=== PATIENT | male | born 2000 | race Caucasian/White ===

== ENCOUNTER 2022-04-21 15:18 | Observation (INO) ==
[2022-04-21] MEDS ORDERED: SODIUM CHLORIDE 0.9% 1000ML 1,000 ML IV SCH (16:00)
--- NOTE | 2022-04-21 16:04 | Emergency Department Note ---
Impression & Plan Intentional overdose, Suicidal ideation ED Provider Note ED Provider Note NAME: BUTCH HYLTON AGE:21 SEX: Male : 2000 ARRIVES VIA: ems INFORMANT: Patient ED PROVIDER(s): Gila Silva DO CHIEF COMPLAINT: Intentional overdose HPI: This is a 21-year-old male brought in by EMS following intentional overdose. Patient states that approximately 230 he took 1000 mg each of Pristiq and trazodone. He states he is typically prescribed 100 mg daily of these and has been on these for a while. He states he does see a counselor due to history of anxiety and depression but is currently between psychiatrist. He states he has had increased depression recently and did have thoughts of suicide when he attempted this afternoon. Patient states he did previously attempt via cutting. No prior attempted overdose. He denies any additional coingestion. At this time patient states he feels slightly lightheaded and tired but has no other complaints. Patient states he contacted crisis who then called EMS. Police did fill out a 302 box be on the patient. PAST MEDICAL HISTORY:See Below PAST SURGICAL HISTORY:See Below FAMILY HISTORY:See Below SOCIAL HISTORY:See Below HOME MEDICATIONS:See Below ALLERGIES:See Below VITALS:See Below PHYSICAL EXAMINATION: GENERAL: alert, well appearing, well nourished, no distress, non-toxic EYE EXAM: normal conjunctiva, PERRL and EOM's grossly intact OROPHARYNX: no exudate, no erythema, lips, buccal mucosa, and tongue normal and mucous membranes are moist NECK: supple, no nuchal rigidity, no adenopathy, non-tender LUNGS: Clear to auscultation. Normal chest wall mechanics, no w/r/r HEART: no murmurs, S1 normal and S2 normal ABDOMEN: abdomen soft, non-tender, normo-active bowel sounds, no masses, no rebound or guarding. BACK: Back is symmetrical on inspection and there is no deformity, no midline tenderness, no CVA tenderness. SKIN: no rashes, petechiae, orbruising UPPER EXTREMITIES: upper extremities are grossly normal. FROM, nml pulses b/l. LOWER EXTREMITIES: No pitting edema. FROM, nml pulses b/l. NEURO EXAM: Normal sensorium, cranial nerves II-XII grossly intact, normal speech, no facial droop,nogross weakness of arms, no gross weakness of legs. Gross sensation intact. No ataxia. Vital Signs: reviewed and remarkable Differential Diagnosis: Overdose, toxicologic, infection, hypoglycemia, electrolyte abnormalities, cardiac sources, intracerebral event, neurologic, trauma, as well as other pathologies. MEDICAL DECISION MAKING: This is a 21 yo male who presents following an intentional overdose. Vs stable and patient awake/alert. Labs drawn and sent, IV establish, ekg performed and interpreted by me and IVF started on the patient. Patient monitored on telemetry and remained stable. Labs reassuring. I did discuss the case with poison control who recommended minimum of 12 hour observation given long half life of ingested meds and increased risk of seizures. Given need for prolonged observation, case discussed with hospitalist team. No indication of charcoal at this time. No other evidence of evolving toxidrome. Patient ambulatory and tolerating po in the room after resting for a while initially. Consultation(s): 1611: Discussed with Poison Control, Mayda, recommends minimum 12 hour obs given prolonged half life of Pristiq and increased risk of seizures. 1735: DIscussed with PAM Fierro with [facility] hospitalist team. ER Treatment Provided: See below Diagnostics Interpreted By Me: -ECG: NSR at 71, nml axis, nml QRS and QTc, no acute ST/T wave changes -Cardiac Monitoring: An order was placed for continuous cardiac monitoring. The monitor shows a rate of 72 with normal sinus rhythm. -Laboratory studies: As stated above and show below. -Imaging studies: [] Triage Nursing Note Reviewed Prior/Outside Records Reviewed Procedures: [] Critical Care: [] Past Med/Surg History Medical History (Updated 04/21/22 @ 21:51 by Irma Box DO) Mood disorder Surgical History No pertinent past surgical history Social History Smoking Status: Never smoker Hx Alcohol Use: No Hx Substance Use: No Preferred Language: Romanian Communication Ability: Effective Departure Clerk Required: No Current Living Situation: Other Current Living Situation Comment: apartment with three roommates Other Information That Helps Us Care for You: No Feels Safe at Home: Yes Safety Concerns: Feels Safe At This Time Allergies Allergies Allergy/AdvReac Type Severity Reaction Status Date / Time No Known Allergies Allergy Verified 04/21/22 17:37 Home Meds Home Medications Medication Instructions Recorded Confirmed desvenlafaxine succinate 100 mg 100 mg PO DAILY 04/21/22 04/21/22 tablet,extended release 24 hr (Pristiq) trazodone 100 mg tablet 100 mg PO HS 04/21/22 04/21/22 Results & Data (ED) Vital Signs Vital Signs - 24 hr 04/21/22 15:47 04/21/22 15:47 04/21/22 15:47 Temperature 37 C 37 C Temperature Source Oral Oral Pulse Rate 84 84 Pulse Rate [Apical] 84 Pulse Rate from SpO2 Sensor Pulse Rhythm Pulse Rhythm [Apical] Regular Pulse Strength [Apical] Normal Respiratory Rate 16 16 16 Respiratory Depth Normal Blood Pressure 135/69 135/69 Blood Pressure [Right Arm] 135/69 Blood Pressure Mean 91 91 Blood Pressure Mean [Right Arm] 91 Pulse Oximetry 100 100 100 Oxygen Delivery Method Room Air Room Air Room Air Sepsis Recent Fever Within 48 Hours No Sepsis New/Unexplained Change in Mental Status No Sepsis Action Taken by Nursing No Action Required 04/21/22 16:00 04/21/22 16:06 04/21/22 16:50 Temperature Temperature Source Pulse Rate 73 72 Pulse Rate [Apical] Pulse Rate from SpO2 Sensor Pulse Rhythm Regular Pulse Rhythm [Apical] Pulse Strength [Apical] Respiratory Rate 20 Respiratory Depth Blood Pressure 130/62 Blood Pressure [Right Arm] Blood Pressure Mean 84 Blood Pressure Mean [Right Arm] Pulse Oximetry 100 Oxygen Delivery Method Room Air Sepsis Recent Fever Within 48 Hours Sepsis New/Unexplained Change in Mental Status Sepsis Action Taken by Nursing 04/21/22 16:50 04/21/22 17:00 04/21/22 17:00 Temperature Temperature Source Pulse Rate 86 86 Pulse Rate [Apical] Pulse Rate from SpO2 Sensor 86 87 Pulse Rhythm Pulse Rhythm [Apical] Pulse Strength [Apical] Respiratory Rate 13 16 Respiratory Depth Blood Pressure 135/65 Blood Pressure [Right Arm] Blood Pressure Mean 88 Blood Pressure Mean [Right Arm] Pulse Oximetry 100 98 Oxygen Delivery Method Sepsis Recent Fever Within 48 Hours Sepsis New/Unexplained Change in Mental Status Sepsis Action Taken by Nursing 04/21/22 17:20 04/21/22 17:30 04/21/22 17:30 Temperature Temperature Source Pulse Rate 105 H 67 Pulse Rate [Apical] Pulse Rate from SpO2 Sensor 102 H 65 Pulse Rhythm Pulse Rhythm [Apical] Pulse Strength [Apical] Respiratory Rate 15 14 Respiratory Depth Blood Pressure 122/67 Blood Pressure [Right Arm] Blood Pressure Mean 85 Blood Pressure Mean [Right Arm] Pulse Oximetry 98 97 Oxygen Delivery Method Sepsis Recent Fever Within 48 Hours Sepsis New/Unexplained Change in Mental Status Sepsis Action Taken by Nursing Laboratory Data 04/21/22 15:50 04/21/22 15:50 Lab Results 04/21/22 04/21/22 04/21/22 Range/Units 15:50 15:50 15:50 WBC 7.85 (4.8-10.8) K/ul RBC 4.90 (4.70-6.10) M/uL Hgb 14.5 (14.0-18.0) g/dl Hct 43.1 (42.0-52.0) % MCV 88.0 (80.0-100.0) fL MCH 29.6 (25.0-34.0) pg MCHC 33.6 (32.0-36.0) g/dL RDW Std Deviation 38.8 (36.4-46.3) fL RDW Coeff of [place] 12.0 (11.5-14.5) % Plt Count 273 (130-400) K/uL MPV 9.5 (9.4-12.4) fL Immature Gran % (Auto) 0.3 % Neut % (Auto) 78.6 % Lymph % (Auto) 11.6 % [place] % (Auto) 8.3 % Eos % (Auto) 0.8 % Baso % (Auto) 0.4 % Neut # (Auto) 6.18 (1.40-6.50) K/uL Lymph # (Auto) 0.91 L (1.2-3.4) K/uL [place] # (Auto) 0.65 H (0.11-0.59) K/uL Eos # (Auto) 0.06 (0-0.50) K/uL Baso # (Auto) 0.03 (0-0.2) K/uL Immature Gran # (Auto) 0.02 (0.01-0.20) K/uL PT 11.2 (9.0-12.0) Seconds INR 1.1 (0.9-1.1) Sodium 139 (136-145) mmol/L Potassium 4.0 (3.5-5.1) mmol/L Chloride 104 (98-107) mmol/L Carbon Dioxide 29 (21-32) mmol/L Anion Gap 6 (3-11) BUN 19 (6-23) mg/dl Creatinine 1.05 (0.6-1.4) mg/dl Est Cr Clr Drug Dosing Not Reportable Est GFR ( Amer) 117.9 ml/min Est GFR (Non-Af Amer) 101.7 ml/min BUN/Creatinine Ratio 18.1 (10-20) Glucose 113 H (70-99(Fasting)) mg/dl Calcium 9.5 (8.5-10.1) mg/dl Magnesium 1.9 (1.7-2.4) mg/dl Total Bilirubin 0.3 (0.2-1.0) mg/dl AST 26 (13-39) U/L ALT 41 (7-52) U/L Alkaline Phosphatase 73 (34-104) U/L Total Protein 6.8 (6.0-8.3) gm/dl Albumin 4.4 (3.4-5.0) gm/dl Globulin 2.4 L (2.5-4.0) gm/dl Albumin/Globulin Ratio 1.8 (0.9-2) Lipase 25 (11-82) U/L Urine Color Urine Appearance (Clear) Urine pH (4.5-7.5) Ur Specific [place] (1.000-1.030) Urine Protein (Negative) Urine Glucose (UA) (Negative) Urine Ketones (Negative) Urine Blood (Negative) Urine Nitrite (Negative) Urine Bilirubin (Negative) Urine Urobilinogen (Negative) Ur Leukocyte Esterase (Negative) Salicylates (3.0-30) mg/dl Urine Opiates Screen (Neg) Ur Methadone, Qual (Neg) Acetaminophen (10-30) ug/ml Urine Barbiturates (Neg) Ur Phencyclidine (PCP) (Neg) U Amphetamin/Meth Scrn (Neg) MDMA (Ecstasy) Screen (Neg) U Benzodiazepines Scrn (Neg) Ur Cocaine Metabolite (Neg) U Marijuana (THC) Screen (Neg) Ethyl Alcohol mg/dL (<10.0) mg/dl 04/21/22 04/21/22 04/21/22 Range/Units 15:50 15:50 17:30 WBC (4.8-10.8) K/ul RBC (4.70-6.10) M/uL Hgb (14.0-18.0) g/dl Hct (42.0-52.0) % MCV (80.0-100.0) fL MCH (25.0-34.0) pg MCHC (32.0-36.0) g/dL RDW Std Deviation (36.4-46.3) fL RDW Coeff of [place] (11.5-14.5) % Plt Count (130-400) K/uL MPV (9.4-12.4) fL Immature Gran % (Auto) % Neut % (Auto) % Lymph % (Auto) % [place] % (Auto) % Eos % (Auto) % Baso % (Auto) % Neut # (Auto) (1.40-6.50) K/uL Lymph # (Auto) (1.2-3.4) K/uL [place] # (Auto) (0.11-0.59) K/uL Eos # (Auto) (0-0.50) K/uL Baso # (Auto) (0-0.2) K/uL Immature Gran # (Auto) (0.01-0.20) K/uL PT (9.0-12.0) Seconds INR (0.9-1.1) Sodium (136-145) mmol/L Potassium (3.5-5.1) mmol/L Chloride (98-107) mmol/L Carbon Dioxide (21-32) mmol/L Anion Gap (3-11) BUN (6-23) mg/dl Creatinine (0.6-1.4) mg/dl Est Cr Clr Drug Dosing Est GFR ( Amer) ml/min Est GFR (Non-Af Amer) ml/min BUN/Creatinine Ratio (10-20) Glucose (70-99(Fasting)) mg/dl Calcium (8.5-10.1) mg/dl Magnesium (1.7-2.4) mg/dl Total Bilirubin (0.2-1.0) mg/dl AST (13-39) U/L ALT (7-52) U/L Alkaline Phosphatase (34-104) U/L Total Protein (6.0-8.3) gm/dl Albumin (3.4-5.0) gm/dl Globulin (2.5-4.0) gm/dl Albumin/Globulin Ratio (0.9-2) Lipase (11-82) U/L Urine Color Yellow Urine Appearance Clear (Clear) Urine pH 6.5 (4.5-7.5) Ur Specific [place] 1.005 (1.000-1.030) Urine Protein Negative (Negative) Urine Glucose (UA) Negative (Negative) Urine Ketones Negative (Negative) Urine Blood Negative (Negative) Urine Nitrite Negative (Negative) Urine Bilirubin Negative (Negative) Urine Urobilinogen Negative (Negative) Ur Leukocyte Esterase Negative (Negative) Salicylates < 3.0 L (3.0-30) mg/dl Urine Opiates Screen (Neg) Ur Methadone, Qual (Neg) Acetaminophen < 3 L (10-30) ug/ml Urine Barbiturates (Neg) Ur Phencyclidine (PCP) (Neg) U Amphetamin/Meth Scrn (Neg) MDMA (Ecstasy) Screen (Neg) U Benzodiazepines Scrn (Neg) Ur Cocaine Metabolite (Neg) U Marijuana (THC) Screen (Neg) Ethyl Alcohol mg/dL < 10.0 (<10.0) mg/dl 04/21/22 Range/Units 17:30 WBC (4.8-10.8) K/ul RBC (4.70-6.10) M/uL Hgb (14.0-18.0) g/dl Hct (42.0-52.0) % MCV (80.0-100.0) fL MCH (25.0-34.0) pg MCHC (32.0-36.0) g/dL RDW Std Deviation (36.4-46.3) fL RDW Coeff of [place] (11.5-14.5) % Plt Count (130-400) K/uL MPV (9.4-12.4) fL Immature Gran % (Auto) % Neut % (Auto) % Lymph % (Auto) % [place] % (Auto) % Eos % (Auto) % Baso % (Auto) % Neut # (Auto) (1.40-6.50) K/uL Lymph # (Auto) (1.2-3.4) K/uL [place] # (Auto) (0.11-0.59) K/uL Eos # (Auto) (0-0.50) K/uL Baso # (Auto) (0-0.2) K/uL Immature Gran # (Auto) (0.01-0.20) K/uL PT (9.0-12.0) Seconds INR (0.9-1.1) Sodium (136-145) mmol/L Potassium (3.5-5.1) mmol/L Chloride (98-107) mmol/L Carbon Dioxide (21-32) mmol/L Anion Gap (3-11) BUN (6-23) mg/dl Creatinine (0.6-1.4) mg/dl Est Cr Clr Drug Dosing Est GFR ( Amer) ml/min Est GFR (Non-Af Amer) ml/min BUN/Creatinine Ratio (10-20) Glucose (70-99(Fasting)) mg/dl Calcium (8.5-10.1) mg/dl Magnesium (1.7-2.4) mg/dl Total Bilirubin (0.2-1.0) mg/dl AST (13-39) U/L ALT (7-52) U/L Alkaline Phosphatase (34-104) U/L Total Protein (6.0-8.3) gm/dl Albumin (3.4-5.0) gm/dl Globulin (2.5-4.0) gm/dl Albumin/Globulin Ratio (0.9-2) Lipase (11-82) U/L Urine Color Urine Appearance (Clear) Urine pH (4.5-7.5) Ur Specific [place] (1.000-1.030) Urine Protein (Negative) Urine Glucose (UA) (Negative) Urine Ketones (Negative) Urine Blood (Negative) Urine Nitrite (Negative) Urine Bilirubin (Negative) Urine Urobilinogen (Negative) Ur Leukocyte Esterase (Negative) Salicylates (3.0-30) mg/dl Urine Opiates Screen Neg (Neg) Ur Methadone, Qual Neg (Neg) Acetaminophen (10-30) ug/ml Urine Barbiturates Neg (Neg) Ur Phencyclidine (PCP) Neg (Neg) U Amphetamin/Meth Scrn Neg (Neg) MDMA (Ecstasy) Screen Pos H (Neg) U Benzodiazepines Scrn Neg (Neg) Ur Cocaine Metabolite Neg (Neg) U Marijuana (THC) Screen Neg (Neg) Ethyl Alcohol mg/dL (<10.0) mg/dl Administered Medications Sodium Chloride (Nss 1000ml) 1,000 mls @ 100 mls/hr IV .Q10H MARCUS Stop: 05/21/22 17:29 Last Infusion: 04/21/22 20:37 Dose: 100 mls/hr Documented By: Admin: 04/21/22 18:00 Dose: 125 mls/hr Documented By: INDIA Discontinued Medications Sodium Chloride (Nss 1000ml) 1,000 mls @ 999 mls/hr IV .Q1H1M MARCUS Stop: 04/21/22 17:00 Last Infusion: 04/21/22 17:10 Dose: 0 mls/hr Documented By: Admin: 04/21/22 16:09 Dose: 999 mls/hr Documented By: NRB Discharge Plan Visit Data Chief Complaint: Overdose (Intentional) ED Provider: Gila Silva Discharge Problem: Intentional overdose, Suicidal ideation Patient Disposition: Admitted As Inpatient Discharge Instructions Interventions: ED Discharge Assessment Last Done: 04/21/22 19:55
[2022-04-21 16:29] LABS: Basophils # (auto) 0.03 K/uL (0-0.2); Basophils % (auto) 0.4 %; Eosinophils # (auto) 0.06 K/uL (0-0.50); Eosinophils % (auto) 0.8 %; Hematocrit (blood only) 43.1 % (42.0-52.0); Hemoglobin 14.5 g/dl (14.0-18.0); Immature Granulocytes # (auto) 0.02 K/uL (0.01-0.20); Immature Granulocytes % (auto) 0.3 %; Lymphocytes # (auto) 0.91 K/uL (1.2-3.4); Lymphocytes % (auto) 11.6 %; Mean Corpuscular Hemoglobin 29.6 pg (25.0-34.0); Mean Corpuscular Hgb Conc 33.6 g/dL (32.0-36.0); Mean Platelet Volume 9.5 fL (9.4-12.4); Monocytes # (auto) 0.65 K/uL (0.11-0.59); Monocytes % (auto) 8.3 %; Neutrophils # (auto) 6.18 K/uL (1.40-6.50); Neutrophils % (auto) 78.6 %; Platelet Count 273 K/uL (130-400); RDW Standard Deviation 38.8 fL (36.4-46.3); White Blood Count 7.85 K/ul (4.8-10.8)
[2022-04-21 16:33] LABS: Acetaminophen < 3 ug/ml (10-30); Salicylate < 3.0 mg/dl (3.0-30)
[2022-04-21 16:43] LABS: Alanine Aminotransferase 41 U/L (7-52); Albumin Globulin Ratio 1.8 (0.9-2); Albumin Level 4.4 gm/dl (3.4-5.0); Alkaline Phosphatase 73 U/L (34-104); Anion Gap 6 (3-11); Aspartate Aminotransferase 26 U/L (13-39); BUN Creatinine Ratio 18.1 (10-20); Bilirubin,Total 0.3 mg/dl (0.2-1.0); Blood Urea Nitrogen 19 mg/dl (6-23); Calcium 9.5 mg/dl (8.5-10.1); Carbon Dioxide 29 mmol/L (21-32); Chloride 104 mmol/L (98-107); Est GFR (African American) 117.9 ml/min; Est GFR (Non-African American) 101.7 ml/min; Globulin 2.4 gm/dl (2.5-4.0); Glucose 113 mg/dl (70-99(Fasting)); Lipase 25 U/L (11-82); Magnesium 1.9 mg/dl (1.7-2.4); Sodium 139 mmol/L (136-145); Total Protein 6.8 gm/dl (6.0-8.3)
[2022-04-21 16:54] LABS: INR 1.1 (0.9-1.1); Prothrombin Time 11.2 Seconds (9.0-12.0)
--- NOTE | 2022-04-21 17:20 | Electrocardiogram Report ---
Test Reason : Blood Pressure : / mmHG Vent. Rate : 071 BPM Atrial Rate : 071 BPM P-R Int : 146 ms QRS Dur : 088 ms QT Int : 398 ms P-R-T Axes : -22 097 051 degrees QTc Int : 432 ms Normal sinus rhythm Rightward axis Borderline ECG No previous ECGs available Confirmed by Jesse Velásquez ([id number]) on 04/21/2022 5:19:52 PM Referred By: Confirmed By:Rui Velásquez
[2022-04-21 17:43] LABS: Appearance Urine Clear (Clear); Bilirubin Urine Negative (Negative); Blood Urine Negative (Negative); Color Urine Yellow; Glucose Urine UA Negative (Negative); Ketones Urine Negative (Negative); Leukocyte Esterase Urine Negative (Negative); Nitrite Urine Negative (Negative); Protein Urine Negative (Negative); Specific Gravity Urine 1.005 (1.000-1.030); Urobilinogen Urine Negative (Negative); pH Urine 6.5 (4.5-7.5)
--- NOTE | 2022-04-21 17:45 | History & Physical Report ---
Date of Service April 21, 2022 Assessment & Plan (1) Intentional overdose: Plan: -Admit to med/tele -The patient is currently afebrile, hemodynamically stable, and stable on RA -The patient reportedly took 1000 mg of PO Pristiq and trazodone at approximately 1430 this afternoon -ED staff spoke with poison control who recommended at least 12 hours of monitoring -Will consult Psychiatry, suicide precautions and 1:1 ordered, 302 was filled out by Police -Monitor on tele and pulse oximetry -Will repeat another ECG now then repeat another in the am (ordered) -AM CBC, BMP, and mag -BL SCDs for DVT PPX (2) Suicidal ideation: Plan: -See intentional overdose (3) Mood disorder: Plan: See above Plan The patient was discussed with Dr. Box at the time of the admission History of Present Illness Chief Complaint: Intentional overdose Primary Care Provider: MARY GRACE PCP Curtis is a 21 year old male with a PMH significant for anxiety and depression who presented to the [facility] ED on 04/21/22 for suicidal ideations and intentional overdose. Per the ED staff, the patient took approximately 1000 mg each of Pristiq and trazodone this afternoon around 1430. Shortly after he called the crisis hotline who called EMS. In the ED the patient was found to be afebrile, hemodynamically stable, and stable on RA. Labs including CBC, CMP, negative salicylate, acetaminophen, and alcohol levels, urine tox screen in process, and covid 19 screen were negative. The ED staff spoke with Poison control who recommended a minimum of 12 hours observation. Prior to admission the patient was given 1L NSS bolus and then was continued on NSS at 125 mL/hr x 8 hours. At the time of the exam the patient was resting in bed in no acute distress. He confirmed he took the 1000 mg each of Pristiq and trazodone this afternoon. When asked why her overdosed he stated that his has had multiple different stresses in his life that became too much to deal with. He currently denies homicidal ideations at the time of my exam. He denies any other PMH and is not on any other prescription medications. He denies alcohol and drug use and denies taking any other medications or substances prior to his arrival. Please refer to Dr. Box's attestation for any changes to the treatment plan Allergies Allergy/AdvReac Type Severity Reaction Status Date / Time No Known Allergies Allergy Verified 04/21/22 17:37 Home Medications Medication Instructions Recorded Confirmed Type desvenlafaxine succinate 100 mg 100 mg PO DAILY 04/21/22 04/21/22 History tablet,extended release 24 hr (Pristiq) trazodone 100 mg tablet 100 mg PO HS 04/21/22 04/21/22 History Past Med/Surg History Medical History (Updated 04/21/22 @ 21:51 by Irma Box DO) Mood disorder Surgical History No pertinent past surgical history Social History Smoking Status: Never smoker Hx Alcohol Use: No Hx Substance Use: No Preferred Language: Citizen Of [place] Communication Ability: Effective Tablet Repair Required: No Current Living Situation: Other Current Living Situation Comment: apartment with three roommates Other Information That Helps Us Care for You: No Feels Safe at Home: Yes Safety Concerns: Feels Safe At This Time Review of Systems Review of Systems: Denies current fever, chills, headache, changes in vision, hearing, taste, and smell, chest pain, SOB, cough, abdominal pain, nausea, vomiting, diarrhea, hematemesis, melena, dysuria, hematuria, homicidal ideations, and recent falls. All systems have been reviewed and are otherwise negative. Physical Exam Physical Exam: Physical Exam: General: Currently fatigued and in no acute distress,, stated age, well- nourished, good hygiene HEENT: Normocephalic, atraumatic, no scleral icterus, pupils around round, symmetrical, and reactive to light, moist mucus membranes, trachea midline, no thyromegaly Chest/Pulm: No respiratory distress, symmetrical chest expansion, clear breath sounds throughout Cardiac: RRR, no murmurs noted Abdomen: Negative for ascites and bruising, normoactive bowel sounds, soft, non-tender to palpation throughout Musculoskeletal: Symmetrical and without signs of acute trauma, upper and lower extremities with full ROM, no atrophy, spasticity, or flaccidity Extremities: Radial, dorsalis pedis, and posterior tibial pulses are intact and symmetrical, no edema noted in the BL LE's Skin: Warm, dry, no rashes , lesions, or scars noted Neuro: Alert and oriented to person, place, month, year, and president, no focal defects, CN II-XII tested and intact, no tremors noted Psych: No acute distress, calm and cooperative during the exam Results & Data Results & Data ([facility]) Vital Signs (Past 12 Hours) Vital Signs Temp Pulse Pulse Resp BP BP Pulse Ox 04/21/22 17:00 86 16 98 04/21/22 17:00 135/65 04/21/22 16:50 86 13 100 04/21/22 16:50 130/62 04/21/22 16:06 72 04/21/22 16:00 73 20 100 04/21/22 15:47 37 C 84 16 135/69 100 04/21/22 15:47 37 C 84 16 135/69 100 04/21/22 15:47 84 16 135/69 100 O2 Del Method 04/21/22 17:00 04/21/22 17:00 04/21/22 16:50 04/21/22 16:50 04/21/22 16:06 04/21/22 16:00 Room Air 04/21/22 15:47 Room Air 04/21/22 15:47 Room Air 04/21/22 15:47 Room Air Laboratory Results Abnormal lab results 04/21/22 04/21/22 04/21/22 Range/Units 15:50 15:50 15:50 Lymph # (Auto) 0.91 L (1.2-3.4) K/uL [place] # (Auto) 0.65 H (0.11-0.59) K/uL Glucose 113 H (70-99(Fasting)) mg/dl Globulin 2.4 L (2.5-4.0) gm/dl Salicylates < 3.0 L (3.0-30) mg/dl Acetaminophen < 3 L (10-30) ug/ml ECG Additional Comments: Normal sinus rhythm Rightward axis Borderline ECG No previous ECGs available Confirmed by Jesse Velásquez ([id number]) on 04/21/2022 5:19:52 PM Code Status & VTE Plan Code Status FUll code Supervising Physician Co-Signing Physician Notes PA Supervision Note: I personally saw and examined the patient. I verified all grewal points and agree with GAYLA Armstrong with the following exceptions and/or additions: Subjective: 21-year-old male with a history of mood disorder on Pristiq and trazodone daily presented to the ER for intentional overdose of about 1000 mg each of the 2 medications. Please have filled out a 302 on this patient. He notes increased feelings of depression lately. He denies illicit substance use or alcohol use. He reports feeling very sleepy, otherwise no complaints. Denies chest pain, shortness of breath, lightheadedness, nausea. Physical exam: Vitals reviewed Gen: Alert and oriented, NAD HEENT: anicteric sclerae, EOMI CV: Heart rhythm regular, tachycardic, no murmurs Pulm: CTAB no wheezes or crackles Abd: +BS soft nontender nondistended Ext: no edema, 2+ DP pulses Skin: no rashes, warm/dry Neuro: No focal neurologic deficits Psych: Depressed affect Labs, Rads, and ECG reviewed: No imaging studies performed. CBC and CMP unremarkable. UDS notable for MDMA positive, confirmatory testing pending. Alcohol level negative. COVID-negative. Admission EKG with normal sinus rhythm with a ventricular rate of 71 bpm, with normal IA/QRS/QTc, no ST or T wave changes. Assessment and Plan: Mood disorder, intentional overdose: Poison control has been contacted by ER provider and will continue cardiac monitoring overnight, with repeat EKG at 6 hours from initial EKG as well as in the morning. IV fluids ordered at 100 cc/h. Psychiatry consulted for evaluation as patient becomes medically stable. Plan otherwise as described above. PG Care Time/CCT Total # of Minutes Spent Total Time Spent with Patient: Total time spent is greater than 50% in coordination of care (as documented) at patient's floor/unit and/or counseling patient: [place] [address] INT INP/OBS CARE 3/75MIN Patient Type Established Medical Decision Making High Complexity Diagnoses Intentional overdose T50.902A Suicidal ideation R45.851 Mood disorder F39
[2022-04-21] MEDS: SODIUM CHLORIDE 0.9% 1000ML 1,000 ML IV SCH (18:00)
[2022-04-21 18:15] LABS: Amphetamines+Metham, Urine Neg (Neg); Barbiturates, Urine Neg (Neg); Benzodiazepine, Urine Neg (Neg); Cocaine, Urine Neg (Neg); MDMA (Ecstacy), Urine Pos (Neg); Methadone, Urine Neg (Neg); Opiate, Urine Neg (Neg); Phencyclidine, Urine Neg (Neg)
[2022-04-22] MEDS: SODIUM CHLORIDE 0.9% 1000ML 1,000 ML IV SCH (04:20)
[2022-04-22 05:02] LABS: Albumin Globulin Ratio 1.7 (0.9-2); BUN Creatinine Ratio 14.4 (10-20); Bilirubin,Total 0.4 mg/dl (0.2-1.0); Calcium 9.1 mg/dl (8.5-10.1); Creatinine Clr Calc Pharmacy 130.2 ml/min; Est GFR (Non-African American) 122.5 ml/min; Globulin 2.4 gm/dl (2.5-4.0); Magnesium 1.9 mg/dl (1.7-2.4); Potassium 4.2 mmol/L (3.5-5.1); Total Protein 6.4 gm/dl (6.0-8.3)
[2022-04-22 06:03] LABS: Hematocrit (blood only) 42.4 % (42.0-52.0); Hemoglobin 14.2 g/dl (14.0-18.0); Mean Corpuscular Hemoglobin 29.8 pg (25.0-34.0); Mean Corpuscular Hgb Conc 33.5 g/dL (32.0-36.0); Mean Corpuscular Volume 88.9 fL (80.0-100.0); Mean Platelet Volume 9.5 fL (9.4-12.4); Platelet Count 282 K/uL (130-400); RDW Coefficient of Variation 12.1 % (11.5-14.5); Red Blood Count 4.77 M/uL (4.70-6.10); White Blood Count 6.68 K/ul (4.8-10.8)
--- NOTE | 2022-04-22 10:44 | Electrocardiogram Report ---
Test Reason : Blood Pressure : / mmHG Vent. Rate : 114 BPM Atrial Rate : 114 BPM P-R Int : 166 ms QRS Dur : 080 ms QT Int : 342 ms P-R-T Axes : 071 100 042 degrees QTc Int : 471 ms Sinus tachycardia Possible Left atrial enlargement Rightward axis Borderline ECG When compared with ECG of 21-APR-2022 15:44, Vent. rate has increased BY 43 BPM Confirmed by Jesse Velásquez ([id number]) on 04/22/2022 10:44:07 AM Referred By: REFERRED SELF Confirmed By:Rui Velásquez
--- NOTE | 2022-04-22 10:48 | Electrocardiogram Report ---
Test Reason : Blood Pressure : / mmHG Vent. Rate : 084 BPM Atrial Rate : 084 BPM P-R Int : 176 ms QRS Dur : 088 ms QT Int : 372 ms P-R-T Axes : 072 097 044 degrees QTc Int : 439 ms Poor data quality, interpretation may be adversely affected Normal sinus rhythm Rightward axis Borderline ECG When compared with ECG of 21-APR-2022 19:35, (unconfirmed) No significant change was found Confirmed by Jesse Velásquez ([id number]) on 04/22/2022 10:48:03 AM Referred By: REFERRED SELF Confirmed By:Rui Velásquez
--- NOTE | 2022-04-22 12:30 | Psychiatric Consultation ---
Date of Consultation April 22, 2022 Impression / Recommendations Impression 21 yo [employer] student with hx of depression presenting following suicide attempt via trazodone and Pristiq overdose. Diagnostically consistent with MDD in the context of recent stressors. Acute risk of self-harm remains elevated and high given suicide attempt requiring medical admission, major depressive symptoms, hopelessness. Given elevated risk of harm to self they meet criteria for inpatient psychiatric care for diagnostic clarification, safety/stabilization, development of additional coping skills, medication management and disposition/safety planning. He is now medically stable and agrees to voluntary inpatient treatment so 302 warrant was dispositioned. (1) Intentional overdose: (2) Suicide attempt: (3) Major depression: Plan -Continue 1-on-1 for risk of harm to self -Do not discharge or allow to leave AMA, if attempt to do so contact psych liason as he would meet 302 criteria -Hold psych medications for now -Plan for psychiatric hospitalization on 201 status Psych History Identifying Data 21 yo man and [employer] student admitted medically for suicide attempt. Chief Complaint "I've been thinking about it for a long time" History of Present Illness Presented following suicide attempt of Pristiq and trazodone (10 each of 100mg tablets) due to ongoing stressors and hopelessness for depression. Now medically stable and assessed as on 302 [address] warrant. He is agreeable to voluntary inpatient psych admission, prefers [facility]. Is glad to be alive but remains very depressed. Allergies Allergy/AdvReac Type Severity Reaction Status Date / Time No Known Allergies Allergy Verified 04/21/22 17:37 Home Medications Medication Instructions Recorded Confirmed Type desvenlafaxine succinate 100 mg 100 mg PO DAILY 04/21/22 04/21/22 History tablet,extended release 24 hr (Pristiq) trazodone 100 mg tablet 100 mg PO HS 04/21/22 04/21/22 History Patient History Medical History Mood disorder Surgical History No pertinent past surgical history Social History Smoking Status: Never smoker Hx Alcohol Use: No Hx Substance Use: No Preferred Language: Faroese Communication Ability: Effective 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 Beliefs That Will Affect Care: Spiritual Current Living Situation: Other Current Living Situation Comment: apartment with three roommates Other Information That Helps Us Care for You: No Feels Safe at Home: Yes Safety Concerns: Feels Safe At This Time Physical Exam Psychiatric: Orientation: alert and oriented x 3 Apperance: appropriately dressed and appropriately groomed Eye Contact: good eye contact Motor Behavior: no abnormal motor movements Speech: normal rate/rhythm/volume of speech Affect: + depressed affect Mood: + depressed mood Thought Process: goal directed thought process Thought Content: reality based without delusions Suicidal Thoughts: denies suicidal thoughts (but s/p serious attempt) Homicidal Thoughts: denies homicidal thoughts Hallucinations: no auditory hallucinations and no visual hallucinations Cognition: attention grossly intact and language grossly intact Estimated Intelligence: consistent with education level Insight: + limited insight Judgment: + limited judgement Vital Signs (Past 24 Hours): Last Vital Signs Temp 37 C 04/21/22 15:47 Pulse 86 04/22/22 09:46 Resp 14 04/22/22 09:46 BP 122/56 L 04/22/22 09:46 Pulse Ox 98 04/22/22 09:46 O2 Del Method Room Air 04/22/22 09:46 Review of Systems All systems reviewed & are unremarkable except as noted in HPI & below Results & Data (PSY) Medications Administered Sodium Chloride (Nss 1000ml) 1,000 mls @ 100 mls/hr IV .Q10H [facility] Stop: 05/21/22 17:29 Last Admin: 04/22/22 04:20 Dose: 100 mls/hr Documented By: Infusion: 04/22/22 03:21 Dose: 100 mls/hr Documented By: Infusion: 04/21/22 20:37 Dose: 100 mls/hr Documented By: Admin: 04/21/22 18:00 Dose: 125 mls/hr Documented By: INDIA Coding Level of Care Code INP/OBS CONSULT LVL 3, 45 MIN Diagnoses Intentional overdose T50.902A Suicide attempt T14.91XA Major depression F32.9
--- NOTE | 2022-04-22 13:07 | Discharge Summary ---
Date of Service April 22, 2022 Admission HPI Per Admitting Provider Curtis is a 21 year old male with a PMH significant for anxiety and depression who presented to the [facility] ED on 04/21/22 for suicidal ideations and intentional overdose. Per the ED staff, the patient took approximately 1000 mg each of Pristiq and trazodone this afternoon around 1430. Shortly after he called the crisis hotline who called EMS. In the ED the patient was found to be afebrile, hemodynamically stable, and stable on RA. Labs including CBC, CMP, negative salicylate, acetaminophen, and alcohol levels, urine tox screen in process, and covid 19 screen were negative. The ED staff spoke with Poison control who recommended a minimum of 12 hours observation. Prior to admission the patient was given 1L NSS bolus and then was continued on NSS at 125 mL/hr x 8 hours. At the time of the exam the patient was resting in bed in no acute distress. He confirmed he took the 1000 mg each of Pristiq and trazodone this afternoon. When asked why her overdosed he stated that his has had multiple different stresses in his life that became too much to deal with. He currently denies homicidal ideations at the time of my exam. He denies any other PMH and is not on any other prescription medications. He denies alcohol and drug use and denies taking any other medications or substances prior to his arrival. Principal Diagnosis intentional drug overdose Discharge Exam The patient is awake, alert and oriented 3, well developed and well nourished, normocephalic and atraumatic, lying in bed and in no acute distress. HEENT--PERRL, EOMI, mucous membranes and oropharynx mildly dry Neck--supple. No JVD. No bruits. Thyroid normal, trachea midline, no adenopathy. Heart--normal S1 and S2. No murmurs, rubs or gallops. Lungs--clear bilaterally, no respiratory distress, no accessory muscle use. Abdomen--normal bowel sounds and soft. Mild epigastric and left sided abdominal pain Extremities--no cyanosis or clubbing. No edema. Dermatologic--normal skin turgor, normal color, no abnormal lymph nodes, no rash. Neurologic--cranial nerves II through XII grossly intact. Rheumatologic--normal range of motion. Psychiatric--normal affect. Discharge Data Allergies Allergy/AdvReac Type Severity Reaction Status Date / Time No Known Allergies Allergy Verified 04/21/22 17:37 Consultations 04/21/22 18:03 Consult Psychiatry Routine Hospital Course (1) Intentional overdose: -The patient is currently afebrile, hemodynamically stable, and stable on RA -The patient reportedly took 1000 mg of PO Pristiq and trazodone at approximately 1430 this afternoon -ED staff spoke with poison control who recommended at least 12 hours of monitoring -Will consult Psychiatry, suicide precautions and 1:1 ordered, 302 was filled out by Police -Monitor on tele and pulse oximetry -No changes on EKG -Evaluated by Psych -Patient is medically cleared and medically stable for inpatient psych (2) Suicidal ideation: -See intentional overdose (3) Mood disorder: See above Plan The patient was discussed with Dr. Box at the time of the admission Total Time Total Time Spent Total Time Spent (In Minutes): 35 Discharge Plan Discharge Items Patient Disposition: Transfer Behavioral Health Fac Reason For Visit: INTENTIONAL OVERDOSE Discharge Diagnosis: Intentional drug overdose Activity: Resume your previous activity Non-emergency contact: Primary Care Provider and Psychiatrist Call non-emergency contact if: you have any medication questions and your symptoms worsen Follow-up/Referrals: PCP,NO [Primary Care Provider] - Diet: Regular Addtl Attending Provider Instructions: please make appointment to follow up with your Psychiatrist and PCP Pending Studies at Discharge: No Stand-Alone Forms: My [facility] Medications and DC Order Prescriptions: Discontinued trazodone 100 mg tablet 100 mg PO HS desvenlafaxine succinate [Pristiq] 100 mg Tablet Extended Release 24 Hr 100 mg PO DAILY Discharge Orders: Discharge Order (Routine); Ordered 04/22/22 Ordered By: Thelma Vidal Admission Data Admit Date/Time: 04/21/22 17:45 Attending Provider: Thelma Vidal Admit Provider: Irma Box Primary Care Provider: PCP,NO Other Providers: Deirdre Rosales ; Cecelia Atkinson ; Bentley Hebert Coding Level of Care Code HOSP INP/OBS DISCH >30 MIN Diagnoses Intentional overdose T50.902A Suicidal ideation R45.851 Mood disorder F39 Time Spent (min) 35
== END 2022-04-22 13:04 ==
LOC: EDINP 15:18 → ED 15:18 → SUATTDRO 17:45 → EDINP 19:55

== ENCOUNTER 2022-04-22 13:05 | Inpatient (IN) ==
[2022-04-22] MEDS ORDERED: hydrOXYzine HCl 25 MG TAB PO PRN ×2 (13:22)
[2022-04-22] MEDS ORDERED: BISMUTH SUBSALICYLATE LIQD 236 ML PO PRN (13:22)
[2022-04-22] MEDS ORDERED: ACETAMINOPHEN 325 MG TAB PO PRN (13:22)
[2022-04-22] MEDS ORDERED: MAGNESIUM HYDROXIDE SUSP 30 ML UDC PO PRN (13:22)
[2022-04-22] MEDS ORDERED: ALUMINUM/MAGNESIUM SUSP 30 ML UDC PO PRN (13:22)
[2022-04-22] MEDS ORDERED: SODIUM CHLORIDE 0.65% NA SOLN 45 ML (OCEAN) PRN (13:22)
--- NOTE | 2022-04-23 10:16 | History & Physical ---
Date of Service April 23, 2022 Impression / Recommendations Impression Curtis is a 21 year old [employer] student with a history of depression and anxiety who was admitted for suicide attempt via overdose. Diagnostically consistent with MDD versus persistent depressive disorder as well as social anxiety and BLANE. UDS positive of MDMA but felt to be due to false positive from trazodone overdose as no reported substance use history. They are deemed in need of psychiatric hospitalization for diagnostic clarification, safety and stabilization, medication management and development of further coping skills. Discussed medication treatment options in detail including SSRIs, SNRIs, mirtazapine, hydroxyzine. Discussed risks, benefits and alternatives. Patient would like to start and consented to mirtazapine for anxiety/depression and insomnia and likely an SSRI but wants to review with their parents as thinks their mom responded well to fluoxetine. Reviewed side effects including but not limited to: sedation, increased appetite with mirtazapine. (1) MDD (major depressive disorder), recurrent episode, severe: (2) BLANE (generalized anxiety disorder): (3) Social anxiety disorder: (4) Suicide attempt: Plan 04/23/2022: The patient was admitted to the [facility] ([facility] mental [facility] unit) on q15 min checks (behavioral with suicide precautions) for safety. The patient will participate in group, recreational, and milieu therapies and will be offered additional individual and family sessions as clinically appropriate. -Start mirtazapine 15mg HS -Start an SSRI or SNRI after he discusses past favorable or negative medication trials with his family as others have been on SSRIs/SNRIs Inventory Assets Strengths: supportive relationships, willing to get treatment, resilient Needs: safety and stabilization, medication adjustment, additional coping skills, increased outpatient services Suicide Risk Level Suicide Risk Level: High-Moderate (q15 min suicide checks) (severe depression with serious attempt prior to admission but feels safe in the hospital, able to safety contract and agrees to let nursing/staff know should they develop plan, intent or feel unable to remain safe. ) Risk Factors Assessment : Yes Do You Have Access To A Gun?: No Health Problems: No Mental Health Diagnoses: Yes Substance Use Disorders: No Previous Attempt: Yes Family History of Suicide: No Previous Psychiatric Hospitalization: Yes Protective Factors Assessment Employed: Yes Stable Relationships: Yes Supportive Family: Yes Psychiatric History Identifying Data CURTIS HYLTON is a 21-year-old gender non-conforming individual and [employer] student who currently lives off-campus in an apartment with three roommates, has a history of depression and anxiety, and was admitted on 04/22/22 13:05 on a 201 voluntary commitment for suicide attempt via overdose of his prescription medications. Chief Complaint "I felt really hopeless about certain things that I wish were different". History of Present Illness Curtis presents for psychiatric admission for worsening depression and suicide attempt via overdose of Pristiq (10, 100mg tabs for total dose of 1,000mg) and T razodone (10, 100mg tabs for total dose of 1,000mg) requiring medical admission. They endorse worsening depression with anhedonia, decreased motivation, self- guilt, helplessness, hopelessness, decreased energy, decreased appetite and decreased sleep in the context of multiple psychosocial stressors including exploring gender identity and expression and at times more existential thoughts. The suicidal thoughts got worse about three weeks ago with thoughts of overdosing over that time. The SI had been occurring for a few days at a time for a few hours up to the entire day. They had been considering overdosing on his medication as a suicide attempt for some time. They don't recall any specific precipitants on the day of the attempt but rather "it was just where my mind was at". They feel their depression started in early high school and goes up and down especially worsens in the fall/winter. They are glad to be alive but continues to feel hopeless. 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 They have experienced anxiety since childhood with symptoms of social anxiety, generalized worries, and shakiness. Endorses some mood changes of numbness and avoidance from a traumatic event but denies intrusive flashbacks nor hypervigilance nor night terrors. They are currently prescribed Pristiq 100mg daily and trazodone 100mg HS since being at the [facility] in November 2021. He had found the trazodone very helpful for sleep. He didn't notice any benefits from the Pristiq but experienced withdrawal side effects if he missed a dose. Psychiatric ROS notable for no current nor history of symptoms of aislinn, psychosis, OCD. In the past they've skipped meals due to depression or anxiety but not due lose or maintain a certain weight. Has self-harmed via cutting with razor on arms and legs, was frequent prior to [facility] admission in November 2021 then had stopped until about 1 month ago. Past Psychiatric History Current Psychiatric Diagnosis: MDD Outpatient Services: no psychiatrist currently, therapy at [facility] but hasn't seen someone since before 2021 because their therapist was on maternity break Previous Psych Admissions: [facility] November 2021 for depression with SI Do You Have Access To A Gun?: No History of Previous Suicide Attempt: No (none prior to current overdose leading to this admission) Past Medication Trials: sertraline 50mg daily (maybe increased to 100mg) for 6 months from spring to fall 2021, no benefits and no side effects. Past Head Trauma/Neuro History History of Concussion/Seizure: No Allergies Allergy/AdvReac Type Severity Reaction Status Date / Time No Known Allergies Allergy Verified 04/23/22 09:53 Family History Family History of: Depression (maternal and paternal ), Anxiety (maternal and paternal) and Other-List under Comment Family Mental Health History Comment: OCD - all maternal side of family Alcohol History Hx of Alcohol Use Over the Past 12 Months: No AUDIT Total Score: 0 Smoking Use Have You Smoked or Used Tobacco Products in the Last 30 Days: No Smoking Status: Never smoker Substance History Hx of Prescription Med Misuse Over the Past 12 Months: Yes (Overdose Pristiq and Trazodone 04/21/22) Hx of Over the Counter Med Misuse Over the Past 12 Months: No Hx of Inhalent Misuse Over the Past 12 Months: No Hx of Organic Substance Use Over the Past 12 Months: No Hx of Illegal Substances/Street Drug Use Over Past 12 Months: No Problems as a Result of Past Substance Use: None Identified Personal History Living Arrangements: Apartment Childhood: Parents are and live in [place]. 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[employer]) Marital Status: Single Number Of Children: 0 Beliefs That Will Affect Care: Spiritual Current Legal Problems: No Hx Legal Problems: No Hx Traumatic Life Events: Yes Patient History Medical History Mood disorder Surgical History No pertinent past surgical history Social History Smoking Status: Never smoker Hx Alcohol Use: No Hx Substance Use: No Preferred Language: Zimbabwean Communication Ability: Effective Paste Mixer Required: No Beliefs That Will Affect Care: Spiritual Spiritual Healthcare Practices: did not elaborate Current Living Situation: Other Current Living Situation Comment: apartment with three roommates Feels Safe at Home: Yes Gender Identity: Male Assistive Devices: None Review of Systems Review of Systems: All systems reviewed & are unremarkable except as noted in HPI & below (slightly light headed but they report this is typical) Physical Exam Psychiatric: Orientation: alert and oriented x 3 Apperance: appropriately dressed and appropriately groomed Eye Contact: good eye contact Motor Behavior: no abnormal motor movements Speech: normal rate/rhythm/volume of speech (quiet, latent at times) Affect: + depressed affect and + flat affect Mood: + depressed mood and + anxious mood Thought Process: goal directed thought process Thought Content: reality based without delusions Suicidal Thoughts: denies suicidal intent; + reports suicidal thoughts (intermittent thoughts ) and + reports suicidal plan (none currently but attempt prior to admission) Homicidal Thoughts: denies homicidal thoughts Hallucinations: no auditory hallucinations and no visual hallucinations Cognition: recent memory grossly intact, remote memory grossly intact, attention grossly intact a nd language grossly intact Estimated Intelligence: consistent with education level Insight: + limited insight Judgment: + limited judgement Vital Signs (Past 24 Hours): Last Vital Signs Temp 36.6 C 04/23/22 06:43 Pulse 64 04/23/22 06:43 Resp 16 04/23/22 06:43 BP 87/43 L 04/23/22 06:43 Exam Statement: A physical exam was performed on the medical floor by Dr. Vidal for the purposes of medical clearance. I accept that physical as correct and adequate for the purposes of the inpatient physical exam. Results & Data (RUST) Current Inpatient Medications Current Inpatient Medications: Current Inpatient Medications Acetaminophen (Acetaminophen 325 Mg Tab) 650 mg PO Q4H PRN PRN Reason: Headache or Minor Fever Stop: 05/22/22 13:21 Al Hydrox/Mg Hydrox/Simethicone (Aluminum/Magnesium Susp 30 Ml Udc) 30 ml PO Q4H PRN PRN Reason: GI Upset Stop: 05/22/22 13:21 Bismuth Subsalicylate (Bismuth Subsalicylate Liqd 236 Ml) 15 ml PO PRN PRN PRN Reason: Loose Stool Stop: 05/22/22 13:21 Hydroxyzine HCl (Hydroxyzine Hcl 25 Mg Tab) 50 mg PO HSZ PRN PRN Reason: Insomnia Stop: 05/22/22 13:21 Last Admin: 04/23/22 02:28 Dose: 50 mg Hydroxyzine HCl (Hydroxyzine Hcl 25 Mg Tab) 25 mg PO Q4H PRN PRN Reason: Anxiety Stop: 05/22/22 13:21 Magnesium Hydroxide (Magnesium Hydroxide Susp 30 Ml Udc) 30 ml PO DAILY PRN PRN Reason: Constipation Stop: 05/22/22 13:21 Sodium Chloride (Sodium Chloride 0.65% Na Soln 45 Ml (Pender)) 1 - 2 sprays NA PRN PRN PRN Reason: Nasal Dryness/Congestion Stop: 05/22/22 13:21
[2022-04-23] MEDS: MIRTAZAPINE TAB 15 MG TAB PO SCH (20:43)
--- NOTE | 2022-04-24 08:55 | Psychiatric Progress Note ---
Date of Service April 24, 2022 Impression / Recommendations Impression Curtis is a 21 year old [employer] student with a history of depression and anxiety who was admitted for suicide attempt via overdose. Diagnostically consistent with MDD versus persistent depressive disorder as well as social anxiety and BLANE. UDS positive of MDMA but felt to be due to false positive from trazodone overdose as no reported substance use history. They are deemed in need of psychiatric hospitalization for diagnostic clarification, safety and stabilization, medication management and development of further coping skills. MNPR as identifies as gender non-conforming and sleep issues 04/24/2022: Ongoing depression and sleep issues. Possibly experiencing some Pristiq withdrawal side effects from overdose contributing to sleep issues last night. Their parents, both of whom have depression and social anxiety/anxiety, have responded well to Wellbutrin. Discussed medication treatment options in detail including Wellbutrin, SSRIs, SNRIs. Discussed risks, benefits and alternatives. They would like to start and consented to Wellbutrin for depression. Reviewed side effects including but not limited to:potential for increased anxiety, lower seizure threshold, increased HR/BP, BECKWITH, sexual side effects, and counseled on black box warning of potential for emergence of or increased SI and need to let staff know should this occur or should they feel unsafe. Also discussed importance of seeking emergency care following discharge if this side effect occurs in the future. (1) MDD (major depressive disorder), recurrent episode, severe: (2) BLANE (generalized anxiety disorder): (3) Social anxiety disorder: (4) Suicide attempt: Plan 04/24/2022: Start Wellbutrin XL 150mg tomorrow if vitals remain stable 04/23/2022: The patient was admitted to the [facility] ([facility] mental health unit) on q15 min checks (behavioral with suicide precautions) for safety. The patient will participate in group, recreational, and milieu therapies and wi ll be offered additional individual and family sessions as clinically appropriate. -Start mirtazapine 15mg HS -Start an SSRI or SNRI after he discusses past favorable or negative medication trials with his family as others have been on SSRIs/SNRIs Inventory Assets Strengths: supportive relationships, willing to get treatment, resilient Needs: safety and stabilization, medication adjustment, additional coping skills, increased outpatient services Suicide Risk Level Suicide Risk Level: High-Moderate (q15 min suicide checks) (severe depression with serious attempt prior to admission but feels safe in the hospital, able to safety contract and agrees to let nursing/staff know should they develop plan, intent or feel unable to remain safe. ) Risk Factors Assessment : Yes Do You Have Access To A Gun?: No Health Problems: No Mental Health Diagnoses: Yes Substance Use Disorders: No Previous Attempt: Yes Family History of Suicide: No Previous Psychiatric Hospitalization: Yes Protective Factors Assessment Employed: Yes Stable Relationships: Yes Supportive Family: Yes Interval History Identifying Information CURTIS HYLTON is a 21-year-old gender non-conforming individual and [employer] student who currently lives off-campus in an apartment with three roommates, has a history of depression and anxiety, and was admitted on 04/22/22 13:05 on a 201 voluntary commitment for suicide attempt via overdose of his prescription me dications. Chief Complaint "I'm up and down". Review of Systems Sleep Information Total Hours of Sleep: 7 Sleep Comments: Reported waking up and unable to fall back asleep; given Vistaril and returned to sleep Meal Information Percent Meal Consumed - Breakfast: 10 Percent Meal Consumed - Lunch: 70 Percent Meal Consumed - Dinner: 100 Subjective Subjective Patient was seen & assessed and interval progress reviewed with treatment team nursing and social work. They are attending groups and interacting with peers. Fell asleep well with mirtazapine but then woke up in the middle of the night and struggled to get back into deep sleep due to nightmares and sleep paralysis (which they experience sometimes but seemed to occur more frequently last night). Denies any physical complaints or concerns today. Spoke to their parents yesterday and both responded well to Wellbutrin. Wants to continue with mirtazapine again tonight. Physical Exam Psychiatric Orientation: alert and oriented x 3 Apperance: appropriately dressed and appropriately groomed Eye Contact: + fair eye contact Motor Behavior: no abnormal motor movements Speech: normal rate/rhythm/volume of speech (quiet) Affect: + depressed affect and + anxious affect Mood: + depressed mood and + anxious mood Thought Process: goal directed thought process Thought Content: reality based without delusions Suicidal Thoughts: denies suicidal intent; + reports suicidal thoughts (intermittent thoughts ) and + reports suicidal plan (none currently but attempt prior to admission) Homicidal Thoughts: denies homicidal thoughts Hallucinations: no auditory hallucinations and no visual hallucinations Cognition: recent memory grossly intact, remote memory grossly intact, attention grossly intact and language grossly intact Estimated Intelligence: consistent with education level Insight: + limited insight Judgment: + limited judgement Vital Signs (Past 24 Hours) Last Vital Signs Temp 36.9 C 04/24/22 06:35 Pulse 78 04/24/22 06:37 Resp 18 04/24/22 06:35 BP 116/73 04/24/22 06:37 Results & Data ([facility]) Current Inpatient Medications Current Inpatient Medications: Current Inpatient Medications Acetaminophen (Acetaminophen 325 Mg Tab) 650 mg PO Q4H PRN PRN Reason: Headache or Minor Fever Stop: 05/22/22 13:21 Al Hydrox/Mg Hydrox/Simethicone (Aluminum/Magnesium Susp 30 Ml Udc) 30 ml PO Q4H PRN PRN Reason: GI Upset Stop: 05/22/22 13:21 Bismuth Subsalicylate (Bismuth Subsalicylate Liqd 236 Ml) 15 ml PO PRN PRN PRN Reason: Loose Stool Stop: 05/22/22 13:21 Hydroxyzine HCl (Hydroxyzine Hcl 25 Mg Tab) 50 mg PO HSZ PRN PRN Reason: Insomnia Stop: 05/22/22 13:21 Last Admin: 04/23/22 02:28 Dose: 50 mg Hydroxyzine HCl (Hydroxyzine Hcl 25 Mg Tab) 25 mg PO Q4H PRN PRN Reason: Anxiety Stop: 05/22/22 13:21 Magnesium Hydroxide (Magnesium Hydroxide Susp 30 Ml Udc) 30 ml PO DAILY PRN PRN Reason: Constipation Stop: 05/22/22 13:21 Mirtazapine (Mirtazapine Tab 15 Mg Tab) 15 mg PO HS MARCUS Stop: 05/23/22 21:59 Last Admin: 04/23/22 20:43 Dose: 15 mg Sodium Chloride (Sodium Chloride 0.65% Na Soln 45 Ml ([place])) 1 - 2 sprays NA PRN PRN PRN Reason: Nasal Dryness/Congestion Stop: 05/22/22 13:21 Mental Health & Subst Abuse Tx Psychiatrist [facility] Date Of Appointment With Psychiatric Provider: 05/12/2022 Time of Appointment with Psychiatrist: 8am Psychiatric Appointment Comment: [address] [place] [address] Therapist Name of Therapist: Maxine Whitfield Therapist's Date of Therapist Appointment: 04/29/2022 Time of Therapist Appointment: 3pm Therapy Appointment Comment: [address], [address], [place] [address] Energy Sales Consultant Name of Energy Sales Consultant: [employer] [facility] [employer] [facility] Phone Number for Energy Sales Consultant: [phone] Case Management Appointment Comment: zoom link will be sent to [employer] email Post Discharge Appointments Primary Care Physician Name Of Family Doctor/PCP: [facility] Time of Appointment with PCP: please follow up as needed
[2022-04-24] MEDS: MIRTAZAPINE TAB 15 MG TAB PO SCH (21:23)
--- NOTE | 2022-04-25 08:58 | Psychiatric Progress Note ---
Date of Service April 25, 2022 Impression / Recommendations Impression Curtis is a 21 year old [employer] student with a history of depression and anxiety who was admitted for suicide attempt via overdose. Diagnostically consistent with MDD versus persistent depressive disorder as well as social anxiety and BLANE. UDS positive of MDMA but felt to be due to false positive from trazodone overdose as no reported substance use history. They are deemed in need of psychiatric hospitalization for diagnostic clarification, safety and stabilization, medication management and development of further coping skills. MNPR as identifies as gender non-conforming and sleep issues 04/25/2022: No SI today but still with depression and anxiety as well as physical symptoms of serotonin withdrawal from Pristiq overdose. Tolerating mirtazapine and finds this helpful for sleep. Tolerating initial dose of Wellbutrin, will need to continue to monitor to ensure no worsening of anxiety. (1) MDD (major depressive disorder), recurrent episode, severe: (2) BLANE (generalized anxiety disorder): (3) Social anxiety disorder: (4) Suicide attempt: Plan 04/24/2022: Continue Wellbutrin XL 150mg daily and mirtazapine 15mg HS 04/24/2022: Start Wellbutrin XL 150mg tomorrow if vitals remain stable 04/23/2022: The patient was admitted to the [facility] ([facility] inpatient mental health unit) on q15 min checks (behavioral with suicide precautions) for safety. The patient will participate in group, recreational, and milieu therapies and will be offered additional individual and family sessions as clinically appropriate. -Start mirtazapine 15mg HS -Start an SSRI or SNRI after he discusses past favorable or negative medication trials with his family as others have been on SSRIs/SNRIs Inventory Assets Strengths: supportive relationships, willing to get treatment, resilient Needs: safety and stabilization, medication adjustment, additional coping skills, increased outpatient services Suicide Risk Level Suicide Risk Level: Moderate (q15 min suicide checks) (severe depression with serious attempt prior to admission but denies SI today feels safe in the hospital, able to safety contract and agrees to let nursing/staff know should they develop plan, intent or feel unable to remain safe. ) Risk Factors Assessment : Yes Do You Have Access To A Gun?: No Health Problems: No Mental Health Diagnoses: Yes Substance Use Disorders: No Previous Attempt: Yes Family History of Suicide: No Previous Psychiatric Hospitalization: Yes Protective Factors Assessment Employed: Yes Stable Relationships: Yes Supportive Family: Yes Interval History Identifying Information CURTIS HYLTON is a 21-year-old gender non-conforming individual and [employer] student who currently lives off-campus in an apartment with three roommates, has a history of depression and anxiety, and was admitted on 04/22/22 13:05 on a 201 voluntary commitment for suicide attempt via overdose of his prescription medications. Chief Complaint "I'm tired and I'm having some of those brain zaps". Review of Systems Sleep Information Total Hours of Sleep: 7 Sleep Comments: Meal Information Percent Meal Consumed - Breakfast: 100 Percent Meal Consumed - Lunch: 100 Percent Meal Consumed - Dinner: 100 Subjective Subjective Patient was seen & assessed and interval progress reviewed with treatment team nursing and social work. Attending and participating in groups. They slept "way better" last night but still had a few awakenings. Took the first dose of Wellbutrin and hasn't noticed any increase in anxiety or other side effects from this. Still having some withdrawal side effects from Pristiq overdosing and discontinuation including "brain zaps", fatigue but feels this is manageable currently and slowly improving. Discussed options to hep with side effects, for now they prefer to monitor them as they've been improving. Was more anxious in the morning, as day progressed feels mood is improving a bit. No SI today. Physical Exam Psychiatric Orientation: alert and oriented x 3 Apperance: appropriately dressed and appropriately groomed Eye Contact: + fair eye contact Motor Behavior: no abnormal motor movements Speech: normal rate/rhythm/volume of speech (quiet) Affect: + depressed affect and + constricted affect Mood: + depressed mood and + anxious mood Thought Process: goal directed thought process Thought Content: reality based without delusions Suicidal Thoughts: denies suicidal thoughts, denies suicidal plan (none currently but attempt prior to admission) and denies suicidal intent Homicidal Thoughts: denies homicidal thoughts Hallucinations: no auditory hallucinations and no visual hallucinations Cognition: recent memory grossly intact, remote memory grossly intact, attention grossly intact and language grossly intact Estimated Intelligence: consistent with education level Insight: + limited insight Judgment: + limited judgement Vital Signs (Past 24 Hours) Last Vital Signs Temp 36.6 C 04/25/22 06:44 Pulse 82 04/25/22 06:45 Resp 16 04/25/22 06:44 BP 104/63 04/25/22 06:45 Results & Data ([facility]) Current Inpatient Medications Current Inpatient Medications: Current Inpatient Medications Acetaminophen (Acetaminophen 325 Mg Tab) 650 mg PO Q4H PRN PRN Reason: Headache or Minor Fever Stop: 05/22/22 13:21 Al Hydrox/Mg Hydrox/Simethicone (Aluminum/Magnesium Susp 30 Ml Udc) 30 ml PO Q4H PRN PRN Reason: GI Upset Stop: 05/22/22 13:21 Bismuth Subsalicylate (Bismuth Subsalicylate Liqd 236 Ml) 15 ml PO PRN PRN PRN Reason: Loose Stool Stop: 05/22/22 13:21 Bupropion HCl (Bupropion Xl 150 Mg Tabcr) 150 mg PO QAM MARCUS Stop: 05/25/22 08:59 Hydroxyzine HCl (Hydroxyzine Hcl 25 Mg Tab) 50 mg PO HSZ PRN PRN Reason: Insomnia Stop: 05/22/22 13:21 Last Admin: 04/23/22 02:28 Dose: 50 mg Hydroxyzine HCl (Hydroxyzine Hcl 25 Mg Tab) 25 mg PO Q4H PRN PRN Reason: Anxiety Stop: 05/22/22 13:21 Magnesium Hydroxide (Magnesium Hydroxide Susp 30 Ml Udc) 30 ml PO DAILY PRN PRN Reason: Constipation Stop: 05/22/22 13:21 Mirtazapine (Mirtazapine Tab 15 Mg Tab) 15 mg PO HS MARCUS Stop: 05/23/22 21:59 Last Admin: 04/24/22 21:23 Dose: 15 mg Sodium Chloride (Sodium Chloride 0.65% Na Soln 45 Ml ([place])) 1 - 2 sprays NA PRN PRN PRN Reason: Nasal Dryness/Congestion Stop: 05/22/22 13:21 Mental Health & Subst Abuse Tx Psychiatrist Name of Psychiatrist: Jc Aldana Psychiatrist's Date Of Appointment With Psychiatric Provider: 05/12/2022 Time of Appointment with Psychiatrist: 8am Psychiatric Appointment Comment: [address] [place] [address] Therapist Name of Therapist: Maxine Whitfield Therapist's Date of Therapist Appointment: 04/29/2022 Time of Therapist Appointment: 3pm Therapy Appointment Comment: [address], [address], [place] [address] Blanket Inspector Name of Blanket Inspector: [employer] [facility] [employer] [facility] Phone Number for Blanket Inspector: [phone] Case Management Appointment Comment: zoom link will be sent to [employer] email Post Discharge Appointments Primary Care Physician Name Of Family Doctor/PCP: [facility] Time of Appointment with PCP: please follow up as needed
[2022-04-25] MEDS: buPROPion XL 150 MG TABCR PO SCH (09:12)
[2022-04-25] MEDS: MIRTAZAPINE TAB 15 MG TAB PO SCH (20:28)
--- NOTE | 2022-04-26 09:05 | Psychiatric Progress Note ---
Date of Service April 26, 2022 Impression / Recommendations Impression Curtis is a 21 year old [employer] student with a history of depression and anxiety who was admitted for suicide attempt via overdose. Diagnostically consistent with MDD versus persistent depressive disorder as well as social anxiety and BLANE. UDS positive of MDMA but felt to be due to false positive from trazodone overdose as no reported substance use history. They are deemed in need of psychiatric hospitalization for diagnostic clarification, safety and stabilization, medication management and development of further coping skills. MNPR as identifies as gender non-conforming and sleep issues 04/25/2022: No SI today but still with depression and anxiety as well as physical symptoms of serotonin withdrawal from Pristiq overdose. Tolerating mirtazapine and finds this helpful for sleep. Tolerating initial dose of Wellbutrin, will need to continue to monitor to ensure no worsening of anxiety. 04/26/2022: Continues to report no suicidal thoughts. He says that overall he's doing well. Tolerating start of bupropion and mirtazapine with no reported treatment- emergent adverse effects. He's happy with them thus far and does not desire to make any changes. (1) MDD (major depressive disorder), recurrent episode, severe: (2) BLANE (generalized anxiety disorder): (3) Social anxiety disorder: (4) Suicide attempt: Plan 04/26/2022: * continue bupropion XL 150 mg daily * continue mirtazapine 15 mg QHS * will likely be appropriate for discharge soon 04/25/2022: Continue Wellbutrin XL 150mg daily and mirtazapine 15mg HS 04/24/2022: Start Wellbutrin XL 150mg tomorrow if vitals remain stable 04/23/2022: The patient was admitted to the [facility] ([facility] mental health unit) on q15 min checks (behavioral with suicide precautions) for safety. The patient will participate in group, recreational, and milieu therapies and will be offered additional individual and family sessions as clinically appropriate. -Start mirtazapine 15mg HS -Start an SSRI or SNRI after he discusses past favorable or negative medication trials with his family as others have been on SSRIs/SNRIs Inventory Assets Strengths: supportive relationships, willing to get treatment, resilient Needs: safety and stabilization, medication adjustment, additional coping skills, increased outpatient services Suicide Risk Level Suicide Risk Level: Moderate (q15 min suicide checks) (severe depression with serious attempt prior to admission but denies SI today feels safe in the hospital, able to safety contract and agrees to let nursing/staff know should they develop plan, intent or feel unable to remain safe. ) Suicide Risk Level Comments: High-Moderate due to severe depression with SI with plan prior to admission but feels safe in the hospital, able to safety contract and agrees to let nursing/staff know should they develop plan, intent or feel unable to remain safe. Risk Factors Assessment : Yes Do You Have Access To A Gun?: No Health Problems: No Mental Health Diagnoses: Yes Substance Use Disorders: No Previous Attempt: Yes Family History of Suicide: No Previous Psychiatric Hospitalization: Yes Protective Factors Assessment Employed: Yes Stable Relationships: Yes Supportive Family: Yes Interval History Identifying Information CURTIS HYLTON is a 21-year-old gender non-conforming individual and [employer] student who currently lives off-campus in an apartment with three roommates, has a history of depression and anxiety, and was admitted on 04/22/22 13:05 on a 201 voluntary commitment for suicide attempt via overdose of his prescription medications. Chief Complaint "Pretty good". Review of Systems Sleep Information Total Hours of Sleep: 7.75 Meal Information Percent Meal Consumed - Breakfast: 100 Percent Meal Consumed - Lunch: 100 Percent Meal Consumed - Dinner: 95 Subjective Subjective Patient was seen & assessed and interval progress reviewed with treatment team nursing and social work Physical Exam Psychiatric Orientation: alert and oriented x 3 Apperance: appropriately dressed and appropriately groomed Eye Contact: + fair eye contact Motor Behavior: no abnormal motor movements Speech: normal rate/rhythm/volume of speech (quiet) Affect: + depressed affect and + anxious affect Mood: + depressed mood and + anxious mood Thought Process: goal directed thought process Thought Content: reality based without delusions Suicidal Thoughts: denies suicidal thoughts, denies suicidal plan (none currently but attempt prior to admission) and denies suicidal intent Homicidal Thoughts: denies homicidal thoughts Hallucinations: no auditory hallucinations and no visual hallucinations Cognition: recent memory grossly intact, remote memory grossly intact, attention grossly intact and language grossly intact Estimated Intelligence: consistent with education level Insight: + limited insight Judgment: + limited judgement Vital Signs (Past 24 Hours) Last Vital Signs Temp 36.5 C 04/26/22 06:40 Pulse 76 04/26/22 06:41 Resp 16 04/26/22 06:40 BP 131/69 04/26/22 06:41 Results & Data ([facility]) Current Inpatient Medications Current Inpatient Medications: Current Inpatient Medications Acetaminophen (Acetaminophen 325 Mg Tab) 650 mg PO Q4H PRN PRN Reason: Headache or Minor Fever Stop: 05/22/22 13:21 Al Hydrox/Mg Hydrox/Simethicone (Aluminum/Magnesium Susp 30 Ml Udc) 30 ml PO Q4H PRN PRN Reason: GI Upset Stop: 05/22/22 13:21 Bismuth Subsalicylate (Bismuth Subsalicylate Liqd 236 Ml) 15 ml PO PRN PRN PRN Reason: Loose Stool Stop: 05/22/22 13:21 Bupropion HCl (Bupropion Xl 150 Mg Tabcr) 150 mg PO QAM MARCUS Stop: 05/25/22 08:59 Last Admin: 04/25/22 09:12 Dose: 150 mg Hydroxyzine HCl (Hydroxyzine Hcl 25 Mg Tab) 50 mg PO HSZ PRN PRN Reason: Insomnia Stop: 05/22/22 13:21 Last Admin: 04/23/22 02:28 Dose: 50 mg Hydroxyzine HCl (Hydroxyzine Hcl 25 Mg Tab) 25 mg PO Q4H PRN PRN Reason: Anxiety Stop: 05/22/22 13:21 Magnesium Hydroxide (Magnesium Hydroxide Susp 30 Ml Udc) 30 ml PO DAILY PRN PRN Reason: Constipation Stop: 05/22/22 13:21 Mirtazapine (Mirtazapine Tab 15 Mg Tab) 15 mg PO HS MARCUS Stop: 05/23/22 21:59 Last Admin: 04/25/22 20:28 Dose: 15 mg Sodium Chloride (Sodium Chloride 0.65% Na Soln 45 Ml ([place])) 1 - 2 sprays NA PRN PRN PRN Reason: Nasal Dryness/Congestion Stop: 05/22/22 13:21 Mental Health & Subst Abuse Tx Psychiatrist Name of Psychiatrist: Jc Aldana Psychiatrist's Date Of Appointment With Psychiatric Provider: 05/12/2022 Time of Appointment with Psychiatrist: 8am Psychiatric Appointment Comment: [address] [place] [address] Therapist Name of Therapist: Maxine Whitfield Therapist's Date of Therapist Appointment: 04/29/2022 Time of Therapist Appointment: 3pm Therapy Appointment Comment: [address], [address], [place] [address] Field Staff Manager Name of Field Staff Manager: [employer] Phone Number for Field Staff Manager: [phone] Date of Appointment with Field Staff Manager: 04/28/22 Time of Appointment with Field Staff Manager: 1pm Case Management Appointment Comment: zoom link will be sent to [employer] email Post Discharge Appointments Primary Care Physician Name Of Family Doctor/PCP: [facility] Time of Appointment with PCP: please follow up as needed
[2022-04-26] MEDS: buPROPion XL 150 MG TABCR PO SCH (09:28)
[2022-04-26] MEDS: MIRTAZAPINE TAB 15 MG TAB PO SCH (20:55)
[2022-04-27] MEDS: buPROPion XL 150 MG TABCR PO SCH (08:42)
--- NOTE | 2022-04-27 09:53 | Discharge Summary ---
Date of Service April 27, 2022 History of Present Illness Curtis presents for psychiatric admission for worsening depression and suicide attempt via overdose of Pristiq (10, 100mg tabs for total dose of 1,000mg) and Trazodone (10, 100mg tabs for total dose of 1,000mg) requiring medical admission. They endorse worsening depression with anhedonia, decreased motivation, self-guilt, helplessness, hopelessness, decreased energy, decreased appetite and decreased sleep in the context of multiple psychosocial stressors including exploring gender identity and expression and at times more existential thoughts. The suicidal thoughts got worse about three weeks ago with thoughts of overdosing over that time. The SI had been occurring for a few days at a time for a few hours up to the entire day. They had been considering overdosing on his medication as a suicide attempt for some time. They don't recall any sp ecific precipitants on the day of the attempt but rather "it was just where my mind was at". They feel their depression started in early high school and goes up and down especially worsens in the fall/winter. They are glad to be alive but continues to feel hopeless. 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 They have experienced anxiety since childhood with symptoms of social anxiety, generalized worries, and shakiness. Endorses some mood changes of numbness and avoidance from a traumatic event but denies intrusive flashbacks nor hypervigilance nor night terrors. They are currently prescribed Pristiq 100mg daily and trazodone 100mg HS since being at the [facility] in November 2021. He had found the trazodone very helpful for sleep. He didn't notice any benefits from the Pristiq but experienced withdrawal side effects if he missed a dose. Psychiatric ROS notable for no current nor history of symptoms of aislinn, psychosis, OCD. In the past they've skipped meals due to depression or anxiety but not due lose or maintain a certain weight. Has self-harmed via cutting with razor on arms and legs, was frequent prior to [facility] admission in November 2021 then had stopped until about 1 month ago. Physical Exam Psychiatric Orientation: alert and oriented x 3 Apperance: appropriately dressed and appropriately groomed Eye Contact: + fair eye contact Motor Behavior: no abnormal motor movements Speech: normal rate/rhythm/volume of speech (quiet) Affect: + depressed affect and + anxious affect Mood: + depressed mood and + anxious mood Thought Process: goal directed thought process Thought Content: reality based without delusions Suicidal Thoughts: denies suicidal thoughts, denies suicidal plan and denies suicidal intent Homicidal Thoughts: denies homicidal thoughts Hallucinations: no auditory hallucinations and no visual hallucinations Cognition: recent memory grossly intact, remote memory grossly intact, attention grossly intact and language grossly intact Estimated Intelligence: consistent with education level Insight: + limited insight Judgment: + limited judgement Vital Signs (Past 24 Hours) Last Vital Signs Temp 36.6 C 04/27/22 06:42 Pulse 89 04/27/22 06:42 Resp 16 04/27/22 06:42 BP 111/68 04/27/22 06:42 Principal Diagnosis Recurrent major depression, severe, without psychotic features Psychiatric Data See daily stay summary. In short, safety was maintained and the patient was cooperative with care. Medication changes included addition of bupropion and mi rtazapine and they tolerated this well. A family session was offered and safety plan was completed prior to discharge. Curtis is a 21 year old [employer] student with a history of depression and anxiety who w as admitted for suicide attempt via overdose. Diagnostically consistent with MDD versus persistent depressive disorder as well as social anxiety and BLANE. UDS positive of MDMA but felt to be due to false positive from trazodone overdose as no reported substance use history. They are deemed in need of psychiatric hospitalization for diagnostic clarification, safety and stabilization, medication management and development of further coping skills. MNPR as identifies as gender non-conforming and sleep issues 04/25/2022: No SI today but still with depression and anxiety as well as physical symptoms of serotonin withdrawal from Pristiq overdose. Tolerating mirtazapine and finds this helpful for sleep. Tolerating initial dose of Wellbutrin, will need to continue to monitor to ensure no worsening of anxiety. 04/26/2022: Continues to report no suicidal thoughts. He says that overall he's doing well. Tolerating start of bupropion and mirtazapine with no reported treatment- emergent adverse effects. He's happy with them thus far and does not desire to make any changes. Day of Discharge Assessment Today the patient voices readiness for discharge. They note improvement in mood and deny thoughts to harm self or others. Thoughts remain organized and they are improved from admission. There is no evidence of psychosis. They agree to take mediations as prescribed and keep follow-up appointments. They are stable for discharge to outpatient level of care. Advance Directives Advance Directives Information Provided: Yes Advance Directives: No Mental Health Advance Directive: No Advance Directives on File: No Living Will: No Power of Recyclable Materials Distributor: No Advance Directives Reason:: Declines as Mental Health Visit. Suicide Risk Level Suicide Risk Level Comments: High-Moderate due to severe depression with SI with plan prior to admission but feels safe in the hospital, able to safety contract and agrees to let nursing/staff know should they develop plan, intent or feel unable to remain safe. Risk Factors Assessment : Yes Do You Have Access To A Gun?: No Health Problems: No Mental Health Diagnoses: Yes Substance Use Disorders: No Previous Attempt: Yes Family History of Suicide: No Previous Psychiatric Hospitalization: Yes Protective Factors Assessment Employed: Yes Stable Relationships: Yes Supportive Family: Yes Total Time Total Time Spent: Greater Than 30 Minutes Total Time Includes: Examination of the patient, Discharge Planning and Medication Reconciliation Hospital Course (1) MDD (major depressive disorder), recurrent episode, severe: (2) BLANE (generalized anxiety disorder): (3) Social anxiety disorder: (4) Suicide attempt: Plan 04/26/2022: * continue bupropion XL 150 mg daily * continue mirtazapine 15 mg QHS * will likely be appropriate for discharge soon 04/25/2022: Continue Wellbutrin XL 150mg daily and mirtazapine 15mg HS 04/24/2022: Start Wellbutrin XL 150mg tomorrow if vitals remain stable 04/23/2022: The patient was admitted to the [facility] on q15 min checks (behavioral with suicide precautions) for safety. The patient will participate in group, recreational, and milieu therapies and will be offered additional individual and family sessions as clinically appropriate. -Start mirtazapine 15mg HS -Start an SSRI or SNRI after he discusses past favorable or negative medication trials with his family as others have been on SSRIs/SNRIs Mental Health & Subst Abuse Tx Psychiatrist Name of Psychiatrist: [facility] Psychiatrist's Date Of Appointment With Psychiatric Provider: 05/12/2022 Time of Appointment with Psychiatrist: 8am Psychiatric Appointment Comment: [address] [place] [address] Therapist Name of Therapist: Maxine Hayes- Roseann Therapist's Date of Therapist Appointment: 04/29/2022 Time of Therapist Appointment: 3pm Therapy Appointment Comment: [address], [place] [address] Director Of Automation Name of Director Of Automation: Student Care and Advocacy Phone Number for Director Of Automation: [phone] Date of Appointment with Director Of Automation: 04/28/22 Time of Appointment with Director Of Automation: 1pm Case Management Appointment Comment: zoom link will be sent to [employer] email Post Discharge Appointments Primary Care Physician Name Of Family Doctor/PCP: [facility]bin Time of Appointment with PCP: please follow up as needed Contact Information Discharge Discharge [address] [address] [place], [place] [address] [address] Discharge Plan Discharge Items Patient Disposition: Home - Self-Care Reason For Visit: MDD Discharge Diagnosis: Major Depression, recurrent, severe without psychotic features Activity: Resume your previous activity Non-emergency contact: Primary Care Provider and Psychiatrist Call non-emergency contact if: you have any medication questions and your symptoms worsen Follow-up/Referrals: PCP,NO [Primary Care Provider] - Diet: Regular Addtl Attending Provider Instructions: SPECIAL CARE INSTRUCTIONS: 1. Follow through with your scheduled aftercare appointments. If unable to keep an appointment, please call to reschedule. 2. Take your medication only as prescribed. Medication should not be changed or stopped without the approval of your doctor. In the event of worsening symptoms or concerns about side effects, contact your doctor immediately. 3. Utilize new healthy coping skills, anger management skills, and stress management skills learned during your hospitalization. Journal feelings and process them with a support person. Identify stressors or situations that may result in relapse, deterioration or inappropriate behaviors and develop a plan to deal with those issues. 4. If your coping skills are ineffective and you are in crisis, contact your outpatient providers for direction. If unable to reach your providers, please call the [facility] CRISIS LINE AT , go to the [facility] walk-in center at [address], [place], or go to the closest Emergency Room. 5. Avoid alcohol and un-prescribed drugs. 6. You have been provided with the Mental Health Advance Directives Pamphlet for your review. 7. Your condition is stable for discharge to outpatient level of care, but recovery is an ongoing process. Ifthoughts to harm yourself or others return, follow the safety plan developed during your stay. Planning for a safe return home includes securing weapons. Our treatment team recommends weaponsbe removed from the home until your outpatient provider reassesses your progress. In rare cases where the items themselvescannot be removed, guns and ammunitionshould be secured separatelyand keys stored by a reliable personoutside of the home. If you were admitted on an involuntary commitment, the police or other legal authorities may be involved in this process. AFTERCARE APPOINTMENTS: * Please call your insurance company prior to your scheduled appointment to confirm your aftercare providers are covered. Take your insurance information to your appointments. WHO TO CALL AND WHEN: Medical Emergencies: For questions or emergencies related to your hospital stay, please contact the Inpatient Behavioral Health Unit at [phone]. A car rental clerk is on-call 22/09 for the Behavioral Health Unit for emergencies At any time you feel your situation is an emergency, you may also call 911 immediately. Pending Studies at Discharge: No Stand-Alone Forms: My [facility], Smoking Cessation Medications and DC Order Prescriptions: New hydroxyzine HCl 25 mg Tablet 25 mg PO Q4H PRN (Reason: anxiety) 30 Days Qty: 60 0RF mirtazapine 15 mg Tablet 15 mg PO HS 30 Days Qty: 30 0RF bupropion HCl 150 mg Tablet Extended Release 24 Hr 150 mg PO QAM 30 Days Qty: 30 0RF Discharge Orders: Discharge Order (Routine); Ordered 04/27/22 Ordered By: Bentley Hebert Admission Data Admit Date/Time: 04/22/22 13:05 Attending Provider: Deirdre Rosales Admit Provider: Deirdre Rosales Primary Care Provider: PCP,NO Other Interventions: Discharge Summary Assessment (RN) Last Done: 04/27/22 10:04 PSY Interdisciplinary Discharge Planning Last Done: 04/27/22 10:07 Coding Level of Care Code 16525 D/C day mgmt > 30 min Diagnoses MDD (major depressive disorder), recurrent episode, severe F33.2 BLANE (generalized anxiety disorder) F41.1 Social anxiety disorder F40.10 Suicide attempt T14.91XA Time Spent (min) 39
== END 2022-04-27 11:01 | disposition home or self-care (01) | DRG 885 ==
LOC: 3S 13:05

== ENCOUNTER 2022-06-22 17:20 | Inpatient (IN) ==
--- NOTE | 2022-06-22 18:06 | Emergency Department Note ---
Impression & Plan Major depression, Suicidal ideation ED Provider Note NAME: BUTCH HYLTON AGE: 21 SEX: M : 2000 ARRIVES VIA: Walk-In INFORMANT: Patient, ED PROVIDER(S): Kana Herzog MD CHIEF COMPLAINT: Suicidal ideation with plan MEDICAL DECISION MAKING: Patient presents due to concern for mental wellness concern including suicidal ideation with plan. The patient had stated that he had considered jumping from a high elevation as well as possible overdose. Blood work was obtained along with a urinalysis urine drug screen and salicylate Tylenol and alcohol. Patient was medically cleared seen evaluated by psych senior case manager. Referral was made. Patient was excepted to 3 S. Prior /Outside records reviewed: I did review the patient's discharge summary from Dr. Hebert with psychiatry. Patient reportedly has diagnoses of MDD versus persistent depressive disorder as well as social anxiety and BLANE. Medication changes made at the time included addition of bupropion and mirtazapine. Differential diagnosis: Mood disorder, infection, hypoglycemia, electrolyte abnormalities, cardiac sources, intracerebral event, toxicologic, trauma, neurologic, as well as other pathologies. HPI: Patient presents due to concern for suicidal ideation with plan. The patient reportedly had expressed to crisis about possibly jumping off of a ledge and dosing of medication. The patient does have a prior history of attempted o verdose in the past. The patient was most recently inpatient here at [facility] 2 months prior. Patient states that sleep is been okay his appetite has been occasionally decreased. The patient does complain of SI with current plan. No HI or AVH. Patient has no access to guns or weapons. The patient feels safe at home and states that he does get along with his roommates. Patient states that he generally does fairly well in school but this semester may be not as much. After the patient had told this to crisis the patient's mother contacted the [facility] police who then contacted [facility] police who did evaluate the patient for a well check was brought in here for further evaluation treatment PAST MEDICAL HISTORY: See Below PAST SURGICAL HISTORY: See Below SOCIAL HISTORY: See Below HOME MEDICATIONS: See Below ALLERGIES: See Below VITALS: See Below PHYSICAL EXAMINATION: GENERAL: NAD, wearing a mask, non-toxic. EYE EXAM: Normal conjunctiva. PERRL, no anisocoria and EOM's grossly intact w/o pain. NECK: Supple, no nuchal rigidity, no adenopathy, non-tender. No signs of meningismus. FROM of the neck with good chin to chest and neck extension. No stridor. LUNGS: Clear to auscultation. Normal chest wall mechanics. HEART: NSR, no MRG. ABDOMEN: Abdomen soft, non-tender, no masses, no rebound or guarding. BACK: No CVA TTP. SKIN: No rashes and no bruising. UPPER EXTREMITIES: Upper extremities are grossly normal. LOWER EXTREMITIES: Grossly normal, no edema. NEURO EXAM: A&O x3, cranial nerves II-XII grossly intact, normal speech, moves all 4 extremities. Psych: Positive SI with plan, negative HI or AVH. Past Med/Surg History Medical History Mood disorder Surgical History No pertinent past surgical history Social History Smoking Status: Never smoker Hx Alcohol Use: No Hx Substance Use: No Preferred Language: Belarusian Communication Ability: Effective Goat Herder Required: No Beliefs That Will Affect Care: Spiritual Spiritual Healthcare Practices: did not elaborate Current Living Situation: Other Current Living Situation Comment: apartment with three roommates Feels Safe at Home: Yes Gender Identity: Nonbinary Assistive Devices: None Allergies Allergies Allergy/AdvReac Type Severity Reaction Status Date / Time No Known Allergies Allergy Verified 04/23/22 09:53 Home Meds Home Medications Medication Instructions Recorded Confirmed bupropion HCl 150 mg 24 hr tablet, 150 mg PO DAILY 06/22/22 06/22/22 extended release hydroxyzine HCl 25 mg tablet 25 mg PO UD PRN Anxiety 06/22/22 06/22/22 mirtazapine 15 mg tablet 15 mg 06/22/22 Results & Data (ED) Vital Signs Vital Signs - 24 hr 06/22/22 17:29 06/22/22 22:00 Temperature 36.9 C Temperature Source Temporal Artery Scan Pulse Rate 91 H Pulse Rate [Finger] 89 Pulse Rhythm Regular Pulse Strength Normal Respiratory Rate 20 18 Respiratory Effort / Characteristics Non-Labored Spontaneous Non-Labored Spontaneous Respiratory Depth Normal Normal Respiratory Pattern Regular Blood Pressure 145/89 H Blood Pressure [Right Arm] 125/77 Blood Pressure Mean 107 Blood Pressure Mean [Right Arm] 93 Blood Pressure Position Sitting Pulse Oximetry 97 98 Oxygen Delivery Method Room Air Room Air Sepsis Recent Fever Within 48 Hours No Sepsis New/Unexplained Change in Mental Status No Sepsis Action Taken by Nursing No Action Required Home Medications Current Medication List: was personally reviewed by me Laboratory Data Attestation: I reviewed the patient's lab results. 06/22/22 17:51 06/22/22 17:51 Lab Results 06/22/22 06/22/22 06/22/22 Range/Units 17:46 17:46 17:46 WBC (4.8-10.8) K/ul RBC (4.70-6.10) M/uL Hgb (14.0-18.0) g/dl Hct (42.0-52.0) % MCV (80.0-100.0) fL MCH (25.0-34.0) pg MCHC (32.0-36.0) g/dL RDW Std Deviation (36.4-46.3) fL RDW Coeff of Sedrick (11.5-14.5) % Plt Count (130-400) K/uL MPV (9.4-12.4) fL Immature Gran % (Auto) % Neut % (Auto) % Lymph % (Auto) % Harper % (Auto) % Eos % (Auto) % Baso % (Auto) % Neut # (Auto) (1.40-6.50) K/uL Lymph # (Auto) (1.2-3.4) K/uL Harper # (Auto) (0.11-0.59) K/uL Eos # (Auto) (0-0.50) K/uL Baso # (Auto) (0-0.2) K/uL Immature Gran # (Auto) (0.01-0.20) K/uL Sodium (136-145) mmol/L Potassium (3.5-5.1) mmol/L Chloride (98-107) mmol/L Carbon Dioxide (21-32) mmol/L Anion Gap (3-11) BUN (6-23) mg/dl Creatinine (0.6-1.4) mg/dl Est Cr Clr Drug Dosing ml/min Est GFR ( Amer) ml/min Est GFR (Non-Af Amer) ml/min BUN/Creatinine Ratio (10-20) Glucose (70-99(Fasting)) mg/dl Calcium (8.6-10.3) mg/dl Total Bilirubin (0.2-1.0) mg/dl AST (13-39) U/L ALT (7-52) U/L Alkaline Phosphatase (34-104) U/L Total Protein (6.0-8.3) gm/dl Albumin (3.4-5.0) gm/dl Globulin (2.5-4.0) gm/dl Albumin/Globulin Ratio (0.9-2) TSH (0.300-4.500) uIu/ml Urine Color Yellow Urine Appearance Clear (Clear) Urine pH 6.0 (4.5-7.5) Ur Specific Peck 1.005 (1.000-1.030) Urine Protein Negative (Negative) Urine Glucose (UA) Negative (Negative) Urine Ketones Negative (Negative) Urine Blood Negative (Negative) Urine Nitrite Negative (Negative) Urine Bilirubin Negative (Negative) Urine Urobilinogen Negative (Negative) Ur Leukocyte Esterase Negative (Negative) Salicylates (3.0-30) mg/dl Urine Opiates Screen Neg (Neg) Ur Methadone, Qual Neg (Neg) Acetaminophen (10-30) ug/ml Urine Barbiturates Neg (Neg) Ur Phencyclidine (PCP) Neg (Neg) U Amphetamin/Meth Scrn Neg (Neg) MDMA (Ecstasy) Screen Neg (Neg) U Benzodiazepines Scrn Neg (Neg) Ur Cocaine Metabolite Neg (Neg) U Marijuana (THC) Screen Neg (Neg) Ethyl Alcohol mg/dL (<10.0) mg/dl SARS-CoV-2, RNA, NAAT NEGATIVE (NEGATIVE) 06/22/22 06/22/22 06/22/22 Range/Units 17:51 17:51 17:51 WBC 4.26 L (4.8-10.8) K/ul RBC 5.66 (4.70-6.10) M/uL Hgb 17.1 (14.0-18.0) g/dl Hct 49.2 (42.0-52.0) % MCV 86.9 (80.0-100.0) fL MCH 30.2 (25.0-34.0) pg MCHC 34.8 (32.0-36.0) g/dL RDW Std Deviation 38.0 (36.4-46.3) fL RDW Coeff of Sedrick 11.9 (11.5-14.5) % Plt Count 286 (130-400) K/uL MPV 9.6 (9.4-12.4) fL Immature Gran % (Auto) 0.2 % Neut % (Auto) 59.6 % Lymph % (Auto) 24.2 % Harper % (Auto) 8.9 % Eos % (Auto) 5.2 % Baso % (Auto) 1.9 % Neut # (Auto) 2.54 (1.40-6.50) K/uL Lymph # (Auto) 1.03 L (1.2-3.4) K/uL Harper # (Auto) 0.38 (0.11-0.59) K/uL Eos # (Auto) 0.22 (0-0.50) K/uL Baso # (Auto) 0.08 (0-0.2) K/uL Immature Gran # (Auto) 0.01 (0.01-0.20) K/uL Sodium 140 (136-145) mmol/L Potassium 4.3 (3.5-5.1) mmol/L Chloride 104 (98-107) mmol/L Carbon Dioxide 30 (21-32) mmol/L Anion Gap 6 (3-11) BUN 12 (6-23) mg/dl Creatinine 1.03 (0.6-1.4) mg/dl Est Cr Clr Drug Dosing 114.4 ml/min Est GFR ( Amer) 120.6 ml/min Est GFR (Non-Af Amer) 104.1 ml/min BUN/Creatinine Ratio 11.7 (10-20) Glucose 74 (70-99(Fasting)) mg/dl Calcium 9.7 (8.6-10.3) mg/dl Total Bilirubin 0.5 (0.2-1.0) mg/dl AST 22 (13-39) U/L ALT 29 (7-52) U/L Alkaline Phosphatase 82 (34-104) U/L Total Protein 7.8 (6.0-8.3) gm/dl Albumin 4.9 (3.4-5.0) gm/dl Globulin 2.9 (2.5-4.0) gm/dl Albumin/Globulin Ratio 1.7 (0.9-2) TSH 1.223 (0.300-4.500) uIu/ml Urine Color Urine Appearance (Clear) Urine pH (4.5-7.5) Ur Specific Peck (1.000-1.030) Urine Protein (Negative) Urine Glucose (UA) (Negative) Urine Ketones (Negative) Urine Blood (Negative) Urine Nitrite (Negative) Urine Bilirubin (Negative) Urine Urobilinogen (Negative) Ur Leukocyte Esterase (Negative) Salicylates (3.0-30) mg/dl Urine Opiates Screen (Neg) Ur Methadone, Qual (Neg) Acetaminophen (10-30) ug/ml Urine Barbiturates (Neg) Ur Phencyclidine (PCP) (Neg) U Amphetamin/Meth Scrn (Neg) MDMA (Ecstasy) Screen (Neg) U Benzodiazepines Scrn (Neg) Ur Cocaine Metabolite (Neg) U Marijuana (THC) Screen (Neg) Ethyl Alcohol mg/dL (<10.0) mg/dl SARS-CoV-2, RNA, NAAT (NEGATIVE) 06/22/22 06/22/22 Range/Units 17:51 17:51 WBC (4.8-10.8) K/ul RBC (4.70-6.10) M/uL Hgb (14.0-18.0) g/dl Hct (42.0-52.0) % MCV (80.0-100.0) fL MCH (25.0-34.0) pg MCHC (32.0-36.0) g/dL RDW Std Deviation (36.4-46.3) fL RDW Coeff of Sedrick (11.5-14.5) % Plt Count (130-400) K/uL MPV (9.4-12.4) fL Immature Gran % (Auto) % Neut % (Auto) % Lymph % (Auto) % Harper % (Auto) % Eos % (Auto) % Baso % (Auto) % Neut # (Auto) (1.40-6.50) K/uL Lymph # (Auto) (1.2-3.4) K/uL Harper # (Auto) (0.11-0.59) K/uL Eos # (Auto) (0-0.50) K/uL Baso # (Auto) (0-0.2) K/uL Immature Gran # (Auto) (0.01-0.20) K/uL Sodium (136-145) mmol/L Potassium (3.5-5.1) mmol/L Chloride (98-107) mmol/L Carbon Dioxide (21-32) mmol/L Anion Gap (3-11) BUN (6-23) mg/dl Creatinine (0.6-1.4) mg/dl Est Cr Clr Drug Dosing ml/min Est GFR ( Amer) ml/min Est GFR (Non-Af Amer) ml/min BUN/Creatinine Ratio (10-20) Glucose (70-99(Fasting)) mg/dl Calcium (8.6-10.3) mg/dl Total Bilirubin (0.2-1.0) mg/dl AST (13-39) U/L ALT (7-52) U/L Alkaline Phosphatase (34-104) U/L Total Protein (6.0-8.3) gm/dl Albumin (3.4-5.0) gm/dl Globulin (2.5-4.0) gm/dl Albumin/Globulin Ratio (0.9-2) TSH (0.300-4.500) uIu/ml Urine Color Urine Appearance (Clear) Urine pH (4.5-7.5) Ur Specific Peck (1.000-1.030) Urine Protein (Negative) Urine Glucose (UA) (Negative) Urine Ketones (Negative) Urine Blood (Negative) Urine Nitrite (Negative) Urine Bilirubin (Negative) Urine Urobilinogen (Negative) Ur Leukocyte Esterase (Negative) Salicylates < 3.0 L (3.0-30) mg/dl Urine Opiates Screen (Neg) Ur Methadone, Qual (Neg) Acetaminophen < 3 L (10-30) ug/ml Urine Barbiturates (Neg) Ur Phencyclidine (PCP) (Neg) U Amphetamin/Meth Scrn (Neg) MDMA (Ecstasy) Screen (Neg) U Benzodiazepines Scrn (Neg) Ur Cocaine Metabolite (Neg) U Marijuana (THC) Screen (Neg) Ethyl Alcohol mg/dL < 10.0 (<10.0) mg/dl SARS-CoV-2, RNA, NAAT (NEGATIVE) Discharge Plan Visit Data Chief Complaint: Mental Health Evaluation Stated Complaint: MENTAL HEALTH EVAL ED Provider: Kana Herzog Discharge Problem: Major depression, Suicidal ideation Patient Disposition: Admitted As Inpatient Discharge Instructions Interventions: ED Discharge Assessment Last Done: 06/22/22 22:43
[2022-06-22 18:21] LABS: Appearance Urine Clear (Clear); Bilirubin Urine Negative (Negative); Blood Urine Negative (Negative); Color Urine Yellow; Glucose Urine UA Negative (Negative); Ketones Urine Negative (Negative); Leukocyte Esterase Urine Negative (Negative); Nitrite Urine Negative (Negative); Protein Urine Negative (Negative); Specific Gravity Urine 1.005 (1.000-1.030); Urobilinogen Urine Negative (Negative)
[2022-06-22 18:21] LABS: Basophils # (auto) 0.08 K/uL (0-0.2); Basophils % (auto) 1.9 %; Eosinophils # (auto) 0.22 K/uL (0-0.50); Eosinophils % (auto) 5.2 %; Hematocrit (blood only) 49.2 % (42.0-52.0); Hemoglobin 17.1 g/dl (14.0-18.0); Immature Granulocytes # (auto) 0.01 K/uL (0.01-0.20); Immature Granulocytes % (auto) 0.2 %; Lymphocytes # (auto) 1.03 K/uL (1.2-3.4); Lymphocytes % (auto) 24.2 %; Mean Corpuscular Hemoglobin 30.2 pg (25.0-34.0); Mean Corpuscular Hgb Conc 34.8 g/dL (32.0-36.0); Mean Corpuscular Volume 86.9 fL (80.0-100.0); Mean Platelet Volume 9.6 fL (9.4-12.4); Monocytes # (auto) 0.38 K/uL (0.11-0.59); Monocytes % (auto) 8.9 %; Neutrophils # (auto) 2.54 K/uL (1.40-6.50); Neutrophils % (auto) 59.6 %; Platelet Count 286 K/uL (130-400); RDW Coefficient of Variation 11.9 % (11.5-14.5); Red Blood Count 5.66 M/uL (4.70-6.10); White Blood Count 4.26 K/ul (4.8-10.8)
[2022-06-22 18:37] LABS: Acetaminophen < 3 ug/ml (10-30); Albumin Globulin Ratio 1.7 (0.9-2); Albumin Level 4.9 gm/dl (3.4-5.0); BUN Creatinine Ratio 11.7 (10-20); Bilirubin,Total 0.5 mg/dl (0.2-1.0); Calcium 9.7 mg/dl (8.6-10.3); Creatinine Clr Calc Pharmacy 114.4 ml/min; Est GFR (African American) 120.6 ml/min; Est GFR (Non-African American) 104.1 ml/min; Globulin 2.9 gm/dl (2.5-4.0); Potassium 4.3 mmol/L (3.5-5.1); Salicylate < 3.0 mg/dl (3.0-30); Total Protein 7.8 gm/dl (6.0-8.3)
[2022-06-22 18:52] LABS: Amphetamines+Metham, Urine Neg (Neg); Barbiturates, Urine Neg (Neg); Benzodiazepine, Urine Neg (Neg); Cocaine, Urine Neg (Neg); MDMA (Ecstacy), Urine Neg (Neg); Methadone, Urine Neg (Neg); Opiate, Urine Neg (Neg); Phencyclidine, Urine Neg (Neg)
[2022-06-22] MEDS ORDERED: ALUMINUM/MAGNESIUM SUSP 30 ML UDC PO PRN (23:22)
[2022-06-22] MEDS ORDERED: BISMUTH SUBSALICYLATE LIQD 236 ML PO PRN (23:22)
[2022-06-22] MEDS ORDERED: hydrOXYzine HCl 25 MG TAB PO PRN ×2 (23:22)
[2022-06-22] MEDS ORDERED: MAGNESIUM HYDROXIDE SUSP 30 ML UDC PO PRN (23:22)
[2022-06-22] MEDS ORDERED: ACETAMINOPHEN 325 MG TAB PO PRN (23:22)
[2022-06-22] MEDS ORDERED: SODIUM CHLORIDE 0.65% NA SOLN 45 ML (OCEAN) PRN (23:22)
[2022-06-23] MEDS: buPROPion XL 150 MG TABCR PO SCH (08:54)
[2022-06-23] MEDS ORDERED: LACTASE 3000 UNIT TAB PO PRN (10:43)
[2022-06-23] MEDS ORDERED: ESCITALOPRAM OXALATE 10 MG TAB PO ONE (10:46)
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
[2022-06-23] MEDS: MIRTAZAPINE TAB 15 MG TAB PO SCH (22:42)
[2022-06-24] MEDS: buPROPion XL 150 MG TABCR PO SCH (08:39)
[2022-06-24] MEDS: ESCITALOPRAM OXALATE 10 MG TAB PO SCH (08:40)
--- NOTE | 2022-06-24 14:27 | Psychiatric Progress Note ---
Date of Service June 24, 2022 Impression / Recommendations Impression 21 yo student with recurrent depression, SI with plan to OD or jump. He has a history of 1 prior OD attempt and this is third hospitalization since 11/2021. Imp: remains obsessional and hopeless. (1) MDD (major depressive disorder), recurrent episode, severe: (2) Obsessive compulsive disorder: (3) BLANE (generalized anxiety disorder): (4) Social anxiety disorder: Plan 06/24/22: continue Lexapro trial to better target OCD. 06/23/22: The patient was admitted to the [facility] ([facility]) on q15 min checks (behavioral with suicide precautions) for safety. The patient will participate in group, recreational, and milieu therapies and will be offered additional individual and family sessions as clinically appropriate. Risks/benefits/alternatives reviewed re: antidepressants for the treatment of depression and/or anxiety. The patient agreed to a trial of Lexapro. He has been counseled re: SI with antidepressants given age. Inventory Assets Strengths: likes major, good relationship with roommates Needs: improve coping, improve expression of thoughts Suicide Risk Level Suicide Risk Level: High-Moderate (q15 min suicide checks) Risk Factors Assessment Male: Yes : Yes Do You Have Access To A Gun?: No Mental Health Diagnoses: Yes Substance Use Disorders: No Previous Attempt: Yes Family History of Suicide: No Previous Psychiatric Hospitalization: Yes Protective Factors Assessment Employed: Yes Supportive Family: Yes Interval History Identifying Information BUTCH HYLTON is a 21-year-old M (identifies asexual and now prefers they/them pronouns), [employer] student from [place], most recently admitted to [facility] 04/2022, and was re-admitted on 06/22/22 22:10 on a 201 voluntary commitment for SI with plan. Chief Complaint "It shouldn't be allowed." referring to circumcision Review of Systems Sleep Information Total Hours of Sleep: 6 Meal Information Percent Meal Consumed - Breakfast: 100 Percent Meal Consumed - Lunch: 100 Percent Meal Consumed - Dinner: 50 Subjective Subjective Patient was seen & assessed and interval progress reviewed with nursing and social work. Patient was able to open up a bit with staff about their preoccupation with their penis and sexual "dysfunction" which is essentially pain with an erection that they attribute to a scar from their procedure. They d lizandro ever being teased as a teen or that it is even noticeable to previous sexual partners. They do have a sex drive and we reviewed their symptoms in the context of primarily obsessional OCD and that having pain with sex and wanting to avoid it is different than being asexual. Physical Exam Psychiatric Orientation: alert and oriented x 3 Apperance: appropriately dressed and appropriately groomed Eye Contact: good eye contact Motor Behavior: no abnormal motor movements Speech: normal rate/rhythm/volume of speech Affect: + depressed affect Mood: + depressed mood Thought Process: goal directed thought process Thought Content: reality based without delusions Suicidal Thoughts: denies suicidal intent (on unit); + reports suicidal thoughts Homicidal Thoughts: denies homicidal thoughts Hallucinations: no auditory hallucinations and no visual hallucinations Cognition: attention grossly intact and language grossly intact Estimated Intelligence: consistent with education level Insight: + limited insight Judgment: + limited judgement Vital Signs (Past 24 Hours) Last Vital Signs Temp 36.6 C 06/24/22 06:47 Pulse 109 H 06/24/22 06:47 Resp 16 06/24/22 06:47 BP 116/74 06/24/22 06:47 Pulse Ox 97 06/22/22 23:26 O2 Del Method Room Air 06/22/22 23:26 Results & Data ([facility]) Current Inpatient Medications Current Inpatient Medications: Current Inpatient Medications Acetaminophen (Acetaminophen 325 Mg Tab) 650 mg PO Q4H PRN PRN Reason: Headache or Minor Fever Stop: 07/22/22 23:21 Al Hydrox/Mg Hydrox/Simethicone (Aluminum/Magnesium Susp 30 Ml Udc) 30 ml PO Q4H PRN PRN Reason: GI Upset Stop: 07/22/22 23:21 Bismuth Subsalicylate (Bismuth Subsalicylate Liqd 236 Ml) 15 ml PO PRN PRN PRN Reason: Loose Stool Stop: 07/22/22 23:21 Bupropion HCl (Bupropion Xl 150 Mg Tabcr) 150 mg PO DAILY MARCUS Stop: 07/23/22 08:59 Last Admin: 06/24/22 08:39 Dose: 150 mg Escitalopram Oxalate (Escitalopram Oxalate 10 Mg Tab) 10 mg PO QAM MARCUS Stop: 07/24/22 08:59 Last Admin: 06/24/22 08:40 Dose: 10 mg Hydroxyzine HCl (Hydroxyzine Hcl 25 Mg Tab) 50 mg PO HSZ PRN PRN Reason: Insomnia Stop: 07/22/22 23:21 Hydroxyzine HCl (Hydroxyzine Hcl 25 Mg Tab) 25 mg PO Q4H PRN PRN Reason: Anxiety Stop: 07/22/22 23:21 Lactase (Lactase 3000 Unit Tab) 3,000 units PO TIDM PRN PRN Reason: Indigestion Stop: 07/23/22 12:29 Magnesium Hydroxide (Magnesium Hydroxide Susp 30 Ml Udc) 30 ml PO DAILY PRN PRN Reason: Constipation Stop: 07/22/22 23:21 Mirtazapine (Mirtazapine Tab 15 Mg Tab) 15 mg PO HS MARCUS Stop: 07/23/22 21:59 Last Admin: 06/23/22 22:42 Dose: 15 mg Sodium Chloride (Sodium Chloride 0.65% Na Soln 45 Ml ([place])) 1 - 2 sprays NA PRN PRN PRN Reason: Nasal Dryness/Congestion Stop: 07/22/22 23:21 Mental Health & Subst Abuse Tx Psychiatrist Date Of Appointment With Psychiatric Provider: Maxine Therapist Name of Therapist: Roseann Goodman
[2022-06-24] MEDS: MIRTAZAPINE TAB 15 MG TAB PO SCH (21:07)
[2022-06-25] MEDS: ESCITALOPRAM OXALATE 10 MG TAB PO SCH (08:54)
[2022-06-25] MEDS: buPROPion XL 150 MG TABCR PO SCH (08:54)
--- NOTE | 2022-06-25 14:11 | Psychiatric Progress Note ---
Date of Service June 25, 2022 Impression / Recommendations Impression 21 yo student with recurrent depression, SI with plan to OD or jump. He has a history of 1 prior OD attempt and this is third hospitalization since 11/2021. Imp: patient receptive to discussion around OCD, agreeable to IOP referral (1) MDD (major depressive disorder), recurrent episode, severe: (2) Obsessive compulsive disorder: (3) BLANE (generalized anxiety disorder): (4) Social anxiety disorder: Plan 06/25/22: continue current meds and tx plan, declined Abilify augmentation in place of Remeron 06/24/22: continue Lexapro trial to better target OCD. 06/23/22: The patient was admitted to the [facility] ([facility] mental health unit) on q15 min checks (behavioral with suicide precautions) for safety. The patient will participate in group, recreational, and milieu therapies and will be offered additional individual and family sessions as clinically appropriate. Risks/benefits/alternatives reviewed re: antidepressants for the treatment of depression and/or anxiety. The patient agreed to a trial of Lexapro. He has been counseled re: SI with antidepressants given age. Inventory Assets Strengths: likes major, good relationship with roommates Needs: improve coping, improve expression of thoughts Suicide Risk Level Suicide Risk Level: Moderate (q15 min suicide checks) Risk Factors Assessment Male: Yes : Yes Do You Have Access To A Gun?: No Mental Health Diagnoses: Yes Substance Use Disorders: No Previous Attempt: Yes Family History of Suicide: No Previous Psychiatric Hospitalization: Yes Protective Factors Assessment Employed: Yes Supportive Family: Yes Interval History Identifying Information BUTCH HYLTON is a 21-year-old M (identifies asexual and now prefers they/them pronouns), [employer] student from [place], most recently admitted to [facility] 04/2022, and was re-admitted on 06/22/22 22:10 on a 201 voluntary commitment for SI with plan. Chief Complaint "My mom has OCD, we talked about it." Review of Systems Sleep Information Total Hours of Sleep: 7.5 Meal Information Percent Meal Consumed - Breakfast: 90 Percent Meal Consumed - Lunch: 90 Percent Meal Consumed - Dinner: 100 Subjective Subjective Patient was seen & assessed and interval progress reviewed with treatment team. Patient remains cooperative with unit routines. Denies any side effects due to Lexapro. Discussed that he is unsure that Remeron is helpful for his sleep or appetite. Less somatic focus today. Physical Exam Psychiatric Orientation: alert and oriented x 3 Apperance: appropriately dressed and appropriately groomed Eye Contact: good eye contact Motor Behavior: no abnormal motor movements Speech: normal rate/rhythm/volume of speech Affect: + depressed affect Mood: + depressed mood Thought Process: goal directed thought process Thought Content: reality based without delusions Suicidal Thoughts: denies suicidal thoughts Homicidal Thoughts: denies homicidal thoughts Hallucinations: no auditory hallucinations and no visual hallucinations Cognition: attention grossly intact and language grossly intact Estimated Intelligence: consistent with education level Insight: + limited insight Judgment: + limited judgement Vital Signs (Past 24 Hours) Last Vital Signs Temp 36.6 C 06/25/22 06:45 Pulse 111 H 06/25/22 06:46 Resp 16 06/25/22 06:45 BP 136/56 L 06/25/22 06:46 Pulse Ox 97 06/22/22 23:26 O2 Del Method Room Air 06/22/22 23:26 Results & Data ([facility]) Current Inpatient Medications Current Inpatient Medications: Current Inpatient Medications Acetaminophen (Acetaminophen 325 Mg Tab) 650 mg PO Q4H PRN PRN Reason: Headache or Minor Fever Stop: 07/22/22 23:21 Al Hydrox/Mg Hydrox/Simethicone (Aluminum/Magnesium Susp 30 Ml Udc) 30 ml PO Q 4H PRN PRN Reason: GI Upset Stop: 07/22/22 23:21 Bismuth Subsalicylate (Bismuth Subsalicylate Liqd 236 Ml) 15 ml PO PRN PRN PRN Reason: Loose Stool Stop: 07/22/22 23:21 Bupropion HCl (Bupropion Xl 150 Mg Tabcr) 150 mg PO DAILY MARCUS Stop: 07/23/22 08:59 Last Admin: 06/25/22 08:54 Dose: 150 mg Escitalopram Oxalate (Escitalopram Oxalate 10 Mg Tab) 10 mg PO QAM MARCUS Stop: 07/24/22 08:59 Last Admin: 06/25/22 08:54 Dose: 10 mg Hydroxyzine HCl (Hydroxyzine Hcl 25 Mg Tab) 50 mg PO HSZ PRN PRN Reason: Insomnia Stop: 07/22/22 23:21 Hydroxyzine HCl (Hydroxyzine Hcl 25 Mg Tab) 25 mg PO Q4H PRN PRN Reason: Anxiety Stop: 07/22/22 23:21 Lactase (Lactase 3000 Unit Tab) 3,000 units PO TIDM PRN PRN Reason: Indigestion Stop: 07/23/22 12:29 Magnesium Hydroxide (Magnesium Hydroxide Susp 30 Ml Udc) 30 ml PO DAILY PRN PRN Reason: Constipation Stop: 07/22/22 23:21 Mirtazapine (Mirtazapine Tab 15 Mg Tab) 15 mg PO HS MARCUS Stop: 07/23/22 21:59 Last Admin: 06/24/22 21:07 Dose: 15 mg Sodium Chloride (Sodium Chloride 0.65% Na Soln 45 Ml ([place])) 1 - 2 sprays NA PRN PRN PRN Reason: Nasal Dryness/Congestion Stop: 07/22/22 23:21 Mental Health & Subst Abuse Tx Psychiatrist Name of Psychiatrist: LINDEN [facility] Psych[facility]rist[facility] Date Of Appointment With Psychiatric Provider: Maxine Psychiatric Appointment Comment: [address], [facility] [address], [place] [address] Therapist Name of Therapist: Maxine Whitfield Therapist's Therapy Appointment Comment: [address], [employer] [employer] [address], [place] [address] Business Services Administrator Name of Business Services Administrator: [employer] Phone Number for Business Services Administrator: [phone] Case Management Appointment Comment: Link will be sent to your [employer] email. Post Discharge Appointments Primary Care Physician Name Of Family Doctor/PCP: LINDEN Albert Primary Care Provider Appointment Comment: Please follow-up with your PCP as needed. Contact Information Discharge Discharge Address: [facility] [place] [address]
[2022-06-25] MEDS: MIRTAZAPINE TAB 15 MG TAB PO SCH (23:11)
[2022-06-26] MEDS: ESCITALOPRAM OXALATE 10 MG TAB PO SCH (08:46)
[2022-06-26] MEDS: buPROPion XL 150 MG TABCR PO SCH (08:46)
--- NOTE | 2022-06-26 09:11 | Psychiatric Progress Note ---
Date of Service June 26, 2022 Impression / Recommendations Impression 21 yo student with recurrent depression, SI with plan to OD or jump. He has a history of 1 prior OD attempt and this is third hospitalization since 11/2021. Imp: improving with structure of unit and family support (1) MDD (major depressive disorder), recurrent episode, severe: (2) Obsessive compulsive disorder: (3) BLANE (generalized anxiety disorder): (4) Social anxiety disorder: Plan 06/26/22: continue current meds and tx plan. Finalize safety plan. 06/25/22: continue current meds and tx plan, declined Abilify augmentation in place of Remeron 06/24/22: continue Lexapro trial to better target OCD. 06/23/22: The patient was admitted to the [facility] ([facility] unit) on q15 min checks (behavioral with suicide precautions) for safety. The patient will participate in group, recreational, and milieu therapies and will be offered additional individual and family sessions as clinically appropriate. Risks/benefits/alternatives reviewed re: antidepressants for the treatment of depression and/or anxiety. The patient agreed to a trial of Lexapro. He has been counseled re: SI with antidepressants given age. Inventory Assets Strengths: likes major, good relationship with roommates Needs: improve coping, improve expression of thoughts Suicide Risk Level Suicide Risk Level: Moderate (q15 min suicide checks) Risk Factors Assessment Male: Yes : Yes Do You Have Access To A Gun?: No Mental Health Diagnoses: Yes Substance Use Disorders: No Previous Attempt: Yes Family History of Suicide: No Previous Psychiatric Hospitalization: Yes Protective Factors Assessment Employed: Yes Supportive Family: Yes Interval History Identifying Information BUTCH HYLTON is a 21-year-old M (identifies asexual and now prefers they/them pronouns), [employer] student from [place], most recently admitted to [facility] 04/2022, and was re-admitted on 06/22/22 22:10 on a 201 voluntary commitment for SI with plan. Chief Complaint "my family meeting was better than the last one." Review of Systems Sleep Information Total Hours of Sleep: 6 Meal Information Percent Meal Consumed - Breakfast: 90 Percent Meal Consumed - Lunch: 90 Percent Meal Consumed - Dinner: 100 Subjective Subjective Patient was seen & assessed and interval progress reviewed with nursing and social work. Finds his parents supportive. Feels he is communicating with them more and that feels good. Less preoccupation with penis. Physical Exam Psychiatric Orientation: alert and oriented x 3 Apperance: appropriately dressed and appropriately groomed Eye Contact: good eye contact Motor Behavior: no abnormal motor movements Speech: normal rate/rhythm/volume of speech Affect: + constricted affect Mood: + depressed mood and + anxious mood Thought Process: goal directed thought process Thought Content: reality based without delusions Suicidal Thoughts: denies suicidal thoughts Homicidal Thoughts: denies homicidal thoughts Hallucinations: no auditory hallucinations and no visual hallucinations Cognition: attention grossly intact and language grossly intact Estimated Intelligence: consistent with education level Insight: + fair insight Judgment: + limited judgement Vital Signs (Past 24 Hours) Last Vital Signs Temp 36.6 C 06/26/22 06:42 Pulse 69 06/26/22 06:42 Resp 16 06/26/22 06:42 BP 121/79 06/26/22 06:42 Pulse Ox 97 06/22/22 23:26 O2 Del Method Room Air 06/22/22 23:26 Results & Data ([facility]) Current Inpatient Medications Current Inpatient Medications: Current Inpatient Medications Acetaminophen (Acetaminophen 325 Mg Tab) 650 mg PO Q4H PRN PRN Reason: Headache or Minor Fever Stop: 07/22/22 23:21 Al Hydrox/Mg Hydrox/Simethicone (Aluminum/Magnesium Susp 30 Ml Udc) 30 ml PO Q4H PRN PRN Reason: GI Upset Stop: 07/22/22 23:21 Bismuth Subsalicylate (Bismuth Subsalicylate Liqd 236 Ml) 15 ml PO PRN PRN PRN Reason: Loose Stool Stop: 07/22/22 23:21 Bupropion HCl (Bupropion Xl 150 Mg Tabcr) 150 mg PO DAILY MARCUS Stop: 07/23/22 08:59 Last Admin: 06/26/22 08:46 Dose: 150 mg Escitalopram Oxalate (Escitalopram Oxalate 10 Mg Tab) 10 mg PO QAM MARCUS Stop: 07/24/22 08:59 Last Admin: 06/26/22 08:46 Dose: 10 mg Hydroxyzine HCl (Hydroxyzine Hcl 25 Mg Tab) 50 mg PO HSZ PRN PRN Reason: Insomnia Stop: 07/22/22 23:21 Hydroxyzine HCl (Hydroxyzine Hcl 25 Mg Tab) 25 mg PO Q4H PRN PRN Reason: Anxiety Stop: 07/22/22 23:21 Lactase (Lactase 3000 Unit Tab) 3,000 units PO TIDM PRN PRN Reason: Indigestion Stop: 07/23/22 12:29 Magnesium Hydroxide (Magnesium Hydroxide Susp 30 Ml Udc) 30 ml PO DAILY PRN PRN Reason: Constipation Stop: 07/22/22 23:21 Mirtazapine (Mirtazapine Tab 15 Mg Tab) 15 mg PO HS MARCUS Stop: 07/23/22 21:59 Last Admin: 06/25/22 23:11 Dose: 15 mg Sodium Chloride (Sodium Chloride 0.65% Na Soln 45 Ml ([place])) 1 - 2 sprays NA PRN PRN PRN Reason: Nasal Dryness/Congestion Stop: 07/22/22 23:21 Mental Health & Subst Abuse Tx Psychiatrist Name of Psychiatrist: LINDEN St Psychiatrist's Date Of Appointment With Psychiatric Provider: Maxine Psychiatric Appointment Comment: [address], [facility] [address], [place], [place] [address] Therapist Name of Therapist: Maxine Whitfield Therapist's Therapy Appointment Comment: [address], [facility] [address], [place] [address] Fire Protection Fabricator Name of Fire Protection Fabricator: [employer] Phone Number for Fire Protection Fabricator: [phone] Case Management Appointment Comment: Link will be sent to your [employer] email. Post Discharge Appointments Primary Care Physician Name Of Family Doctor/PCP: LINDEN Albert Primary Care Provider Appointment Comment: Please follow-up with your PCP as needed. Contact Information Discharge Discharge Address: [address] [place] [address] [place] [address]
[2022-06-26] MEDS: MIRTAZAPINE TAB 15 MG TAB PO SCH (22:01)
[2022-06-27] MEDS: ESCITALOPRAM OXALATE 10 MG TAB PO SCH (08:20)
[2022-06-27] MEDS: buPROPion XL 150 MG TABCR PO SCH (08:20)
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
== END 2022-06-27 10:15 | disposition home or self-care (01) | DRG 885 ==
LOC: ED 17:20 → 3S 22:10